=== PATIENT | male | born 1965 | race Caucasian/White ===

== ENCOUNTER 2019-09-08 15:55 | Emergency (ER) | payer OTHER, SELFPAY ==
[2019-09-08 16:09] VITALS: BP 145/80; PULSE 108; RESP 16; TEMP 37.7; O2SAT 95
--- NOTE | 2019-09-08 16:35 | ED.DENTAL ---
HPI - Dental/Oral General Chief complaint: Dental/Oral Stated complaint: tooth abscess Time Seen by Provider: 09/08/19 16:26 Source: patient and RN notes reviewed Mode of arrival: ambulatory Limitations: no limitations History of Present Illness HPI Narrative: Patient presents today complaining of a broken tooth. Patient broke his tooth yesterday while eating nuts. Reports some swelling to the left cheek since last night. He has been unable to find a dentist to see in the last couple days. Currently rates his pain 6/10 and has been using Orajel with some relief. No recent antibiotic use. MD Complaint: tooth pain Related Data Home Medications Medication Instructions Recorded Confirmed azelastine 137 mcg INTRANASAL DAILY 09/08/19 09/08/19 montelukast 10 mg PO DAILY 09/08/19 09/08/19 Allergies Allergy/AdvReac Type Severity Reaction Status Date / Time house dust Allergy Unknown Other Verified 09/08/19 16:00 shellfish derived Allergy Unknown Anaphylactic Verified 09/08/19 16:09 Shock Review of Systems Review of Systems: Narrative: CONSTITUTIONAL: Denies body aches, fever, chills, or sweats. EYES: Denies visual changes, redness, or discharge. ENT: Denies rhinorrhea, congestion, sore throat, or otalgia.+ Dental pain and facial swelling CARDIOVASCULAR: Denies chest pain, palpitations, or edema. RESPIRATORY: Denies cough or dyspnea. GASTROINTESTINAL: Denies abdominal pain, nausea, vomiting, or diarrhea. GENITOURINARY: Denies dysuria or hematuria. SKIN: Denies rash, itching, or wounds. MUSCULOSKELETAL: Denies back pain, joint pain, or myalgia. NEUROLOGIC: Denies headache, numbness, tingling, or weakness. PSYCH: Denies depression or anxiety. [facility] Family History Family History (Updated 10/29/15 @ 23:21 by DOCTOR UNKNOWN) Mother Family history of rheumatoid arthritis Family history of diabetes mellitus in first degree relative Family history of congestive heart failure Sibling Patient's sister is in good health Patient's brother is in good health Other Diabetes mellitus Family history of heart disease in male family member before age 55 Social History Social History Smoking status: Never smoker Alcohol intake: never Comments At time of signature, I have reviewed and agree with nursing past medical, surgical, social and family history unless otherwise noted. Please see nursing chart for further information. There is no relevant family history pertinent to the presenting complaint Exam Narrative: Exam Narrative: GENERAL: Well-appearing, well-nourished, and in no acute distress. HEAD: Normocephalic, atraumatic. EYES: EOMI. No redness or drainage. Conjunctivae normal. ENT: Mucous membranes pink and moist. Anterior portion of tooth #11 is broken off. The tooth is brown in color. Mild swelling and erythema to the gingiva. No obvious periapical abscess. Tender to palpation. Mild facial swelling to the left upper cheek NECK: Normal AROM. Supple. No lymphadenopathy. CHEST: No respiratory distress. EXTREMITIES: Normal range of motion. No edema. SKIN: Warm, dry, no rash. Capillary refill normal. Normal skin turgor. NEURO: No focal deficits. Alert and oriented x3. Gait steady. PSYCH: Normal affect. No signs of depression or anxiety. Course Vital Signs Vital signs: Vital Signs Temperature 99.8 F H 09/08/19 16:09 Pulse Rate 108 H 09/08/19 16:09 Respiratory Rate 16 09/08/19 16:09 Blood Pressure 145/80 H 09/08/19 16:09 Pulse Oximetry 95 09/08/19 16:09 Temperature 99.8 F H 09/08/19 16:09 Pulse Rate 108 H 09/08/19 16:09 Respiratory Rate 16 09/08/19 16:09 Blood Pressure 145/80 H 09/08/19 16:09 Pulse Oximetry 95 09/08/19 16:09 Reviewed. Pt has been instructed to follow up with his PCP regarding his elevated blood pressure today. MDM - Dental/Oral Differential Diagnosis Differential diagnosis: Likely gingival abscess, dental caries, toothache, dental ab
== END 2019-09-08 16:41 | disposition home or self-care (01) ==
PROVIDERS: Emergency Provider Nurse Practitioner
DX: K03.81 Cracked tooth (principal)
CPT/HCPCS: 99211; G0463

== ENCOUNTER 2019-10-19 13:00 | Emergency (ER) | payer OTHER, SELFPAY ==
--- NOTE | 2019-10-19 13:11 | ED.WOUNDLAC ---
HPI - Wound/Laceration General Chief Complaint: Wound/Laceration Stated Complaint: Finger abrasion Time Seen by Provider: 10/19/19 13:14 Source: patient and RN notes reviewed Mode of arrival: ambulatory Limitations: no limitations History of Present Illness HPI narrative: This is a 53 years old male presents to the office for an evaluation of left finger laceration. He accidentally cut the tip of his finger while trimming the bushes at home. TD is up to date per patient's report. He did not want to come in however his made him. Related Data Allergies Allergy/AdvReac Type Severity Reaction Status Date / Time house dust Allergy Unknown Other Verified 09/08/19 16:00 shellfish derived Allergy Unknown Anaphylactic Verified 09/08/19 16:09 Shock Review of Systems Review of Systems: Narrative: CONSTITUTIONAL: Reports feeling hot; since he has been outside cutting trees/bushes. ENT: Denies congestion CARDIOVASCULAR: Denies chest pain RESPIRATORY: Denies dyspnea GASTROINTESTINAL: Denies abdominal pain, nausea, vomiting SKIN: Reports finger laceration with chipped nail MUSCULOSKELETAL: Denies finger pain and able to move his fingers without any numbness or tingling NEUROLOGIC: Denies lightheaded All other systems reviewed are negative, except as documented in HPI. PMFSH Family History Family History Mother Family history of rheumatoid arthritis Family history of diabetes mellitus in first degree relative Family history of congestive heart failure Sibling Patient's sister is in good health Patient's brother is in good health Other Diabetes mellitus Family history of heart disease in male family member before age 55 Social History Social History Smoking status: Never smoker Alcohol intake: never Comments At time of signature, I agree with nursing past medical, surgical, social and family history. There is no relevant family history pertinent to the presenting complaint. Exam Narrative: Exam Narrative: GENERAL: This is a well-nourished, well-developed patient, in no apparent distress. CARDIOVASCULAR: Regular rate and rhythm without murmurs, gallops, or rubs. RESPIRATORY: Clear to auscultation. Breath sounds equal bilaterally. No wheezes, rales, or rhonchi. GASTROINTESTINAL: Abdomen soft, non-tender, nondistended. Bowel sounds are active. No guarding. NEURO: awake, alert, and oriented to person, place and time. There were no obvious focal neurologic abnormalities. Steady gait EXTREMITIES: Normal range of motion of left index finger, medial aspect of nail bed noted chipped nail with skin abrasion; no active bleeding, lac is very superficial; no gapping, wound tension is very low; no stitches needed. Denisse Coma Scale Eye Opening: Spontaneous 4 Yale Coma Scale Motor: Obeys Commands 6 Denisse Coma Scale Verbal: Oriented 5 Course Vital Signs Vital signs: Vital Signs Temperature 99.1 F 10/19/19 13:13 Pulse Rate 120 H 10/19/19 13:13 Respiratory Rate 16 10/19/19 13:13 Blood Pressure 145/103 H 10/19/19 13:13 Pulse Oximetry 97 10/19/19 13:13 Temperature 99.1 F 10/19/19 13:13 Pulse Rate 120 H 10/19/19 13:13 Respiratory Rate 16 10/19/19 13:13 Blood Pressure 145/103 H 10/19/19 13:13 Pulse Oximetry 97 10/19/19 13:13 MDM - Wound/Laceration MDM Narrative Medical decision making narrative: Clean the wound with iodine and then apply topical antibiotic ointment and dressed it with Band-Aid and Coban along with finger splint. Discharge instructions reviewed with patient, as well as provided in writing per nursing staff. The instructions also include specific and strict return/GO TO THE ER as well as f/u information. All questions have been answered, and the patient deny any further questions with discharge and discharge plan. The patient has been informed that
[2019-10-19 13:13] VITALS: BP 145/103; PULSE 120; RESP 16; TEMP 37.3; O2SAT 97
--- NOTE | 2019-10-19 13:38 | PC.NURSE ---
BP rechecked on discharge 136/72
== END 2019-10-19 13:38 | disposition home or self-care (01) ==
PROVIDERS: Emergency Provider Nurse Practitioner; PCP Family Medicine
DX: S60.411A Abrasion of left index finger, initial encounter (principal); W45.8XXA Other foreign body or object entering through skin, initial encounter; M19.90 Unspecified osteoarthritis, unspecified site
CPT/HCPCS: 29130; 99212; G0463

== ENCOUNTER 2020-04-05 12:36 | Outpatient (NON) | payer BC, OTHER, SELFPAY ==
[2020-04-05 22:18] LABS: SARS-CoV-2 RNA PCR Negative
== END 2020-04-05 12:37 ==
PROVIDERS: PCP Family Medicine; Visit Provider Family Medicine
DX: R68.89 Other general symptoms and signs (principal); Z20.822 Contact with and (suspected) exposure to COVID-19
CPT/HCPCS: C9803; U0003

== ENCOUNTER 2020-04-05 17:24 | Outpatient (CLI) | payer BC, OTHER, SELFPAY ==
--- NOTE | ~2020-04-05 | XR_ITS ---
EXAMINATION: XR chest 2V EXAM DATE: 04/05/2020 17:43 INDICATION: Persistent cough, congestion. TECHNIQUE: Frontal and lateral projections of the chest obtained and reviewed. Comparison is made to prior examination from 07/11/2017. FINDINGS: Mild cardiomegaly. There is pulmonary vascular congestion. There is indistinct reticulatio n with a bibasal predominance which may indicate pulmonary edema. Chronic left pleural blunting. Cons ider CHF exacerbation. No confluent consolidation or pneumothorax. IMPRESSION: Findings consistent with mild CHF exacerbation. Reviewed, dictated and finalized at location A. [employer]
== END 2020-04-05 17:25 | disposition home or self-care (01) ==
PROVIDERS: PCP Family Medicine; Visit Provider Family Medicine
DX: R05 Cough (principal)
CPT/HCPCS: 71046; C9803; U0003

== ENCOUNTER 2020-06-04 14:39 | Outpatient (CLI) | payer BC, OTHER, SELFPAY ==
--- NOTE | 2020-06-04 14:46 | ECHO_ITS ---
Patient Info Name: Frank Crawford Age: 54 years : 1965 Gender: Male Ht: 73 in Wt: 483 lbs BSA: 3.49 m2 HR: 104 bpm BP: 141 / 85 mmHg Technical Quality: Poor Exam Date: 06/04/2020 2:53 PM Exam Location: [facility] Patient Status: Outpatient Admit Date: 06/04/2020 Staff Ordering Physician: Pete Turner DO Tutoring Manager: Angelina Yuan RDCS Attending Provider: Pete Turner DO Referring Physician: Johnny DAVIS; Exam Type: CA echo doppler color flow Study Info Indications - MADDIE GUERRA Complete two-dimensional, color flow and Doppler transthoracic echocardiogram is performed. Reason for Poor Study: patient body habitus Summary 1. Complete two-dimensional, color flow and Doppler transthoracic echocardiogram is performed. 2. Technically suboptimal study due to poor sonographic images. 3. Left ventricular chamber dimension is normal. 4. Left ventricular systolic function is normal, estimated at 60-65%. 5. There is mildly increased left ventricular wall thickness. 6. The left ventricular diastolic function is grade I diastolic dysfunction. 7. E/e' 8 is minimally elevated. Left Ventricle Technically suboptimal study due to poor sonographic images. E/e' 8 is minimally elevated. Left ventricular chamber dimension is normal. Left ventricular systolic function is normal, estimated at 60-65%. There is mildly increased left ventricular wall thickness. The left ventricular diastolic function is grade I diastolic dysfunction. Right Ventricle Right ventricular chamber dimension is not well visualized. Left Atria Left atrial chamber dimension is normal. Right Atria Right atrial chamber dimension is not well visualized. Aortic Valve The aortic valve is probable trileaflet. There is no aortic valve stenosis. There is no aortic valve regurgitation. Pulmonic Valve There is no pulmonic regurgitation. Mitral Valve There is no mitral valve stenosis. There is no mitral valve regurgitation. Tricuspid Valve There is no tricuspid valve regurgitation. Pericardium/Pleural There is no pericardial effusion. Inferior Vena Cava Inferior vena cava is not well visualized. Aorta The aortic root size at the sinus of Valsalva is not well visualized. Left Ventricular Outflow Tract Name Value Normal LVOT 2D LVOT Diameter 2.2 cm LVOT Doppler LVOT Peak Gradient 4 mmHg LVOT Mean Gradient 3 mmHg LVOT VTI 21 cm LVOT VTI/AV VTI Ratio 1.0 LVOT Stroke Volume 81 ml LVOT CO 17.6 l/min LVOT CI 5.1 l/min/m2 Pulmonic Valve Name Value Normal PV Doppler PV Peak Gradient 4 mmHg Mitral Valve
== END 2020-06-04 14:40 | disposition home or self-care (01) ==
PROVIDERS: PCP Family Medicine; Visit Provider Internal Medicine Cardiovascular Disease
DX: R60.9 Edema, unspecified (principal)
CPT/HCPCS: 93306

== ENCOUNTER 2020-07-09 09:30 | Outpatient (CLI) | payer BC, MEDICAID, SELFPAY ==
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
[2020-07-26 17:30] VITALS: BMI 51.2
== END 2020-07-09 09:31 | disposition home or self-care (01) ==
LOC: ANHCSM 09:30
PROVIDERS: PCP Family Medicine; Visit Provider Internal Medicine Cardiovascular Disease
DX: G47.10 Hypersomnia, unspecified (principal); G47.33 Obstructive sleep apnea (adult) (pediatric)
CPT/HCPCS: 95806

== ENCOUNTER 2020-07-27 18:18 | Emergency (ER) | payer BC, MEDICAID, SELFPAY ==
[2020-07-27 18:33] VITALS: BP 143/84; PULSE 120; RESP 30; TEMP 38.1; O2SAT 97
--- NOTE | 2020-07-27 19:07 | ED.URI ---
HPI - URI/Sore Throat General Chief Complaint: Upper Respiratory Infection Stated Complaint: Hard time breathing,congestion Time Seen by Provider: 07/27/20 18:50 Source: patient, RN notes reviewed and old records reviewed Mode of arrival: ambulatory History of Present Illness HPI Narrative: 54 year old morbidly obese male presents to express care with complaints of while driving home today he felt sinus pressure building up and increase in his sinus drainage. Patient states that he is having increase in his dyspnea today because of the spring pollen. Patient states that he keeps getting sinus infections and he has been on antibiotic of Augmentin in the past 60 days. 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 Patient states that is ill at present. MD elicited complaint: cough, rhinorrhea and nasal congestion Pertinent past history: pneumonia, sinusitis and seasonal allergies Onset (ago): day(s) (1) Consistency: progressively worsening Description of mucous: clear Able to tolerate fluids by mouth: Yes Exacerbating factors: exertion Relieving factors: nothing Context: sick contacts Associated symptoms: fever, rhinorrhea, nasal congestion, cough and shortness of breath Treatments prior to arrival: other (claritin) Related Data Home Medications Medication Instructions Recorded Confirmed azelastine 137 mcg (0.1 %) nasal 2 spray INTRANASAL Q12H ml 04/09/20 07/20/20 spray aerosol cyclobenzaprine 5 mg tablet 5 mg PO TID PRN 04/09/20 07/20/20 desloratadine 5 mg tablet 5 mg PO DAILY 04/09/20 07/20/20 diphenhydramine HCl 25 mg capsule 25 mg PO TID PRN 04/09/20 07/20/20 docusate sodium 100 mg capsule 100 mg PO DAILY 04/09/20 07/20/20 flu vacc [id number] 6mos up(PF) 0.5 ml IM ONCE 04/09/20 07/20/20 sildenafil 50 mg tablet 50 mg PO DAILY PRN 04/09/20 07/20/20 tamsulosin 0.4 mg capsule 0.4 mg PO DAILY 04/09/20 07/20/20 Allergies Allergy/AdvReac Type Severity Reaction Status Date / Time house dust Allergy Unknown Other Verified 07/27/20 18:21 shellfish derived Allergy Unknown Anaphylactic Verified 07/27/20 18:21 Shock Review of Systems Review of Systems: Narrative: CONSTITUTIONAL: Denies known fever, chills, or sweats. EYES: Denies visual changes, redness, or discharge. ENT: Positive rhinorrhea, congestion, sore throat, or otalgia. CARDIOVASCULAR: Denies chest pain, palpitations, or edema. RESPIRATORY: Positive for cough or dyspnea.on exertion GASTROINTESTINAL: Denies abdominal pain, nausea, vomiting, or diarrhea. GENITOURINARY: Denies dysuria or hematuria. SKIN: Denies rash or itching. MUSCULOSKELETAL: Denies back pain, joint pain, or myalgia. NEUROLOGIC: Denies headache, numbness, or weakness. PSYCHIATRIC: Denies anxiety or depression. anxious All systems reviewed & are unremarkable except as noted in HPI and below PMFSH Past Medical History Medical History Arthritis Kidney stones Obesity Seasonal allergies Surgical History Surgical History History of nasal surgery Family History Family History Mother Family history of rheumatoid arthritis Family history of diabetes mellitus in first degree relative Family history of congestive heart failure Sibling Patient's sister is in good health Patient's brother is in good health Other Diabetes mellitus Family history of heart disease in male family member before age 55 Social History Social History (Updated 08/01/20 @ 20:02 by Vika Lamb NP) Smoking status: Never smoker Alcohol intake: never Substance use: never Living arrangements: with family Gender identity
== END 2020-07-27 19:18 | disposition home or self-care (01) ==
PROVIDERS: Emergency Provider Registered Nurse
DX: J06.9 Acute upper respiratory infection, unspecified (principal); M19.90 Unspecified osteoarthritis, unspecified site
CPT/HCPCS: 99213; G0463

== ENCOUNTER → 2020-08-04 01:57 | Outpatient (CLI) | payer BC, MEDICAID, SELFPAY ==
[2020-08-04 20:20] LABS: SARS-CoV-2 RNA PCR Negative
== END ==
PROVIDERS: Visit Provider Internal Medicine Critical Care Medicine
DX: R68.89 Other general symptoms and signs (principal); Z20.822 Contact with and (suspected) exposure to COVID-19
CPT/HCPCS: C9803; U0003; U0005

== ENCOUNTER 2020-08-05 19:31 | Emergency (ER) | payer BC, MEDICAID, SELFPAY ==
--- NOTE | ~2020-08-05 | XR_ITS ---
EXAMINATION: XR chest 2V DATE: 08/05/2020 19:47 INDICATION: Cough and shortness of breath. TECHNIQUE: Frontal and lateral views of the chest were obtained on 3 radiographs. COMPARISON: Chest 2 views 04/05/2020, chest CT 11/02/2018 FINDINGS: Sensitivity is decreased by obesity. There is mild atelectasis in left lower lung zone. No pleural effusion or pneumothorax. The heart size is normal. IMPRESSION: 1. Mild atelectasis in left lower lung zone. Reviewed, dictated and finalized at location A.
--- NOTE | 2020-08-05 19:37 | ED.URI ---
HPI - URI/Sore Throat General Chief Complaint: Upper Respiratory Infection Stated Complaint: Cough,Congestion Time Seen by Provider: 08/05/20 19:37 Source: patient and RN notes reviewed Mode of arrival: ambulatory Limitations: no limitations History of Present Illness HPI Narrative: 54-year-old male presents to the [facility] with complaints of cough and shortness of breath. 8 or 9 days of productive cough. Nasal congestion. Tested for Covid yesterday at the walk-in clinic and that was negative per chart. Was on azithromycin last week and states she started feeling better but is now feeling worse. Denies fevers. Denies chest pain. Related Data Home Medications Medication Instructions Recorded Confirmed albuterol sulfate INHALATION 08/05/20 montelukast 1 mg PO DAILY 08/05/20 08/05/20 Allergies Allergy/AdvReac Type Severity Reaction Status Date / Time house dust Allergy Unknown Other Verified 08/05/20 19:52 shellfish derived Allergy Unknown Anaphylactic Verified 08/05/20 19:52 Shock Review of Systems Review of Systems: Narrative: CONSTITUTIONAL: Denies fever, chills, or sweats. CARDIOVASCULAR: Denies chest pain, palpitations, or edema. RESPIRATORY: Reports cough or dyspnea. GASTROINTESTINAL: Denies abdominal pain, nausea, vomiting, or diarrhea. SKIN: Denies rash or itching. MUSCULOSKELETAL: Denies back pain, joint pain, or myalgia. NEUROLOGIC: Denies headache, numbness, or weakness. PSYCHIATRIC: Denies anxiety or depression. All other systems reviewed are negative, except as documented in HPI. [facility] Past Medical History Medical History Arthritis Kidney stones Obesity Seasonal allergies Surgical History Surgical History History of nasal surgery Family History Family History Mother Family history of rheumatoid arthritis Family history of diabetes mellitus in first degree relative Family history of congestive heart failure Sibling Patient's sister is in good health Patient's brother is in good health Other Diabetes mellitus Family history of heart disease in male family member before age 55 Social History Social History Smoking status: Never smoker Alcohol intake: never Substance use: never Gender identity (if verbalized by the patient): Male Comments At the time of my signature, I reviewed and agree with the nursing past medical, surgical, social, and family history. There is no relevant family history pertinent to the patient complaint. Exam Narrative: Exam Narrative: GENERAL: This is a well-nourished, well-developed patient, in mild apparent distress. Ill in appearance. Morbidly obese. Alert and oriented x3. HEAD: normocephalic, atraumatic. EYES: PERRL. Sclera clear/white. Vision is grossly intact. EARS: External ears normal, NOSE: External nose normal with nasal discharge, nares without redness, no rhinorrhea. THROAT: Mucous membranes moist, posterior pharynx clear. NECK: Neck supple, non-tender without lymphadenopathy, masses or thyromegaly. CARDIOVASCULAR: Tachycardic rate and normal rhythm without murmurs, gallops, or rubs. RESPIRATORY: Left lower lobe diminished to auscultation, no wheezing or rhonchi noted GASTROINTESTINAL: Abdomen soft, non-tender, nondistended. SKIN: warm, Dry, intact with no suspicious lesions or rash, good texture and turgor. NEURO: awake, alert, and oriented to person, place and time. There were no obvious focal neurologic abnormalities. EXTREMITIES: No joint tenderness, effusion, or edema noted. BACK: Nontender without deformity. Course Vital Signs Vital signs: Vital Signs Temperature 98.8 F 08/05/20 19:52 Pulse Rate 117 H 08/05/20 19:52 Respiratory Rate 20 08/05/20 19:52 Blood Pressure 152/97 H 08/05/20 19:52 Pulse Oximetry 96
[2020-08-05 19:52] VITALS: BP 152/97; PULSE 117; RESP 20; TEMP 37.1; O2SAT 96
== END 2020-08-05 20:10 | disposition home or self-care (01) ==
PROVIDERS: Emergency Provider Nurse Practitioner; PCP Family Medicine
DX: J40 Bronchitis, not specified as acute or chronic (principal); J98.11 Atelectasis; M19.90 Unspecified osteoarthritis, unspecified site
CPT/HCPCS: 71046; 99213; G0463

== ENCOUNTER 2020-08-08 19:28 | Emergency (ER) | payer BC, MEDICAID, SELFPAY ==
--- NOTE | ~2020-08-08 | CT_ITS ---
EXAMINATION:CT chest high resolution w con DATE: 08/08/2020 21:29 INDICATION: Cough. Shortness of breath. TECHNIQUE: Computed tomography (CT) of the chest was performed with 75 mL Omnipaque 350 intravenous c ontrast. Automated exposure control and iterative reconstruction technique were employed. The dose-le ngth product (DLP) was 1026.99 mGy-cm. COMPARISON: Chest CT 11/02/2018 FINDINGS: There is chronic mild peripheral rounded atelectasis in left lower lobe and lingula. There is mild atelectasis in right lung. No bronchiectasis or honeycombing. No pleural effusion. The heart size is normal. No pericardial effusion. There is diffuse hepatic steatosis. There is moderate thorac ic spondylosis. IMPRESSION: 1. Mild atelectasis in the lungs. 2. Diffuse hepatic steatosis. Reviewed, dictated and finalized at location A.
--- NOTE | ~2020-08-08 | XR_ITS ---
EXAMINATION: XR chest 1V portable DATE: 08/08/2020 19:52 INDICATION: Shortness of breath. TECHNIQUE: A single frontal view of the chest was obtained on 2 radiographs. COMPARISON: Chest 2 views 08/05/2020, chest CT 11/02/2018 FINDINGS: Sensitivity is decreased by obesity. There are mild airspace opacities in left lower lung z one. No pleural effusion or pneumothorax. The heart size is normal. IMPRESSION: 1. Mild airspace opacities in left lower lung zone, consistent with atelectasis versus pneumonia. Reviewed, dictated and finalized at location A.
[2020-08-08 19:32] VITALS: BP 151/90; PULSE 125; RESP 24; TEMP 36.3; O2SAT 98
--- NOTE | 2020-08-08 19:41 | ECG_ITS ---
Measurements Intervals [place] Rate: 122 P: ID: 0 QRS: -35 QRSD: 78 T: 81 QT: 302 QTc: 432 Interpretive Statements SINUS TACHYCARDIA LEFT AXIS DEVIATION INCOMPLETE RIGHT BUNDLE BRANCH BLOCK DELAYED PRECORDIAL R/S TRANSITION VOLTAGE CRITERIA FOR LVH BORDERLINE ST-T WAVE ABNORMALITY- HIGH LATERAL LEADS ABNORMAL ECG Electronically Signed On 08-09-2020 7:01:23 CDT by Pete Turner D.O.
[2020-08-08 19:53] LABS: Basophils Percent Auto 0.2 % (0.2-1.2); Eosinophils Absolute Auto 0.1 K/mm3 (0-0.3); Eosinophils Percent Auto 0.5 % (0-4.4); Hematocrit 46.9 % (42.0-52.0); Hemoglobin 14.8 g/dL (14.0-18.0); Immature Granulocyte Absolute 0.11 K/mm3 (0.00-0.031); Immature Granulocyte Percent A 0.8 % (0-0.5); Lymphocytes Absolute Auto 1.63 K/mm3 (0.9-3.2); Lymphocytes Percent Auto 11.5 % (18.3-44.2); Mean Corpuscular HGB Conc 31.6 g/dl (32-36); Mean Corpuscular Hemoglobin 29.2 pg (26-34); Mean Corpuscular Volume 92.5 fl (80-100); Mean Platelet Volume 10.4 fl (7.4-10.4); Monocytes Absolute Auto 0.9 K/mm3 (0.1-0.6); Neutrophils Absolute Auto 11.5 K/mm3 (1.3-6.7); Platelet Count Result 285 k/mm3 (150-375); Red Blood Count 5.07 M/mm3 (4.6-6.20); Red Cell Distribution Width 14.6 % (11.5-14.5); White Blood Count 14.2 K/mm3 (4.5-10.0)
[2020-08-08 20:04] LABS: Anion Gap 9 mmol/L (8-16); Blood Urea Nitrogen 14 mg/dL (9-20); Calcium 9.4 mg/dL (8.4-10.2); Carbon Dioxide 28 mmol/L (22-30); Chloride 102 mmol/L (98-107); Estimated Glomerular Filt Rate > 60; Glucose 139 mg/dL (75-110); Potassium 4.4 mmol/L (3.4-5.0); Sodium 139 mmol/L (137-145)
--- NOTE | 2020-08-08 20:04 | ED.SOB ---
HPI - SOB/Dyspnea General Chief Complaint: Shortness of Breath/Dyspnea Stated Complaint: short of breath Time Seen by Provider: 08/08/20 19:43 Source: patient Mode of arrival: ambulatory Limitations: no limitations History of Present Illness HPI Narrative: This is a 54 year old morbidly obese male who presents for evaluation of worsening shortness of breath. He has been dealing with sinus drainage, sinus pressure, and cough for at least 2 weeks. He was evaluated at [facility] on 08/05/20 for shortness of breath, and he was started on Levaquin, prednisone, and albuterol after a diagnosis of Bronchitis. He states he was initially feeling better but today he was having a coughing attack. He feels better now and only has mild sob. He states he has had to sleep sitting up over the past 3-4 days. He has chronic leg edema but denies worsening swelling. 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 He states he was told his cardiac evaluation was fine, but now he is awaiting a sleep study. He reports intermittent burning chest pain with he uses his albuterol. Covid test was negative on 08/04/20. Related Data Home Medications Medication Instructions Recorded Confirmed albuterol sulfate INHALATION 08/05/20 montelukast 1 mg PO DAILY 08/05/20 08/05/20 Allergies Allergy/AdvReac Type Severity Reaction Status Date / Time house dust Allergy Unknown Other Verified 08/08/20 19:49 shellfish derived Allergy Unknown Anaphylactic Verified 08/08/20 19:49 Shock Review of Systems Review of Systems: All systems reviewed & are unremarkable except as noted in HPI and below Constitutional: Constitutional: Denies chills and Denies fever(s) ENT: Reports nasal congestion and Denies sore throat Cardiovascular: Cardiovascular: Reports chest pain, Denies rapid heart rate and Denies radiating jaw, neck or arm pain Respiratory: Respiratory: Reports cough and Reports dyspnea Gastrointestinal: Gastrointestinal: Denies abdominal pain, Reports diarrhea, Denies nausea and Denies vomiting PMF Past Medical History Medical History Arthritis Kidney stones Obesity Seasonal allergies Surgical History Surgical History History of nasal surgery Family History Family History Mother Family history of rheumatoid arthritis Family history of diabetes mellitus in first degree relative Family history of congestive heart failure Sibling Patient's sister is in good health Patient's brother is in good health Other Diabetes mellitus Family history of heart disease in male family member before age 55 Social History Social History Smoking status: Never smoker Alcohol intake: never Substance use: never Gender identity (if verbalized by the patient): Male Exam Const: General: alert Nutritional Appearance: obese Orientation/consciousness: patient oriented x3 Eyes: EOM: EOMs intact bilaterally Chest: Chest palpation & inspection: normal inspection of the chest Resp: Effort & Inspection: normal respiratory effort and no retractions Auscultation: clear to auscultation bilaterally and diminished lung sounds Cardio: Rate: regular rate Rhythm: regular rhythm Heart sounds: no murmurs GI: GI Palp: Yes Soft to palpation, No Tenderness to palpation present (GI) and No Guarding due to palpation present (GI) Auscultation: normal bowel sounds Neuro: General: patient oriented x3 and moves all extremities Psych: Mental Status: mental status grossly normal Affect: normal affect Course Reevaluation(s) Reevaluation #1: I Discussed with patient that CT does not show pneumonia or edema. His shortness of breath likely due to size. He will continue antibioti
[2020-08-08 20:27] LABS: INR 0.9; Prothrombin Time 13.1 Seconds (11.1-14.7)
[2020-08-08 20:28] LABS: Partial Thromboplastin Time 26.1 SECONDS (22.3-36.8)
[2020-08-08 20:43] LABS: NT Pro B Type Natriuretic Pept 39 pg/mL (5-100); Troponin I < 0.012 ng/mL (0.000-0.034)
[2020-08-08 20:43] LABS: Lactic Acid Reflex 1.9 mmol/L (0.7-2.1)
[2020-08-08 20:46] LABS: D Dimer 0.43 ug/mL (<0.48)
[2020-08-08 20:47] LABS: Base Excess ABG 1.3 mEq/l (+/-2.0); Device ROOM AIR; Fractional Inspired Oxygen 21 %; HCO3 ABG 25.7 mEq/l (22.0-26.0); Methemoglobin ABG 0.1 %THb (0-1.5); Modified Allen's Test Pass; Oxygen Content ABG 19.6 %vol (16.0-22.0); Oxygen Saturation ABG 94.4 % (95.0-100.0); Oxyhemoglobin 93.5 % THb (90.0-100.0); PO2 ABG 69.8 mmHg (80.0-100.0); PO2 FiO2 Ratio Arterial Blood 3.32 %; Reduced Hemoglobin 5.4 %THb (0-5.0); Site Drawn RIGHT RADIAL; Total Hemoglobin 14.9 g/dL (12.0-18.0); pH ABG 7.426 (7.350-7.450)
[2020-08-08] MEDS: diphenhydrAMINE HCl INJ 50 MG/ML VIAL 25 MG IV PUSH (21:10)
[2020-08-08] MEDS: ONDANSETRON INJ 4 MG/2 ML VIAL IV PUSH (21:12)
--- NOTE | 2020-08-08 21:14 | PC.NURSE ---
Pt to Ct via stretcher at this time.
[2020-08-08 21:35] VITALS: BP 159/90; PULSE 120; RESP 19; O2SAT 97
[2020-08-08] MEDS: SODIUM CHLORIDE 0.9% IV 1,000 ML 999 ML IV CONT (21:54)
[2020-08-08 22:36] VITALS: BP 160/78; PULSE 110; RESP 23; O2SAT 95
[2020-08-08 23:25] VITALS: BP 150/87; PULSE 108; RESP 26; O2SAT 95
== END 2020-08-08 23:25 | disposition home or self-care (01) ==
PROVIDERS: Emergency Medicine; Emergency Provider General Practice; PCP Family Medicine
DX: J06.9 Acute upper respiratory infection, unspecified (principal); R00.0 Tachycardia, unspecified; E66.01 Morbid (severe) obesity due to excess calories; M19.90 Unspecified osteoarthritis, unspecified site; Z87.442 Personal history of urinary calculi; K76.0 Fatty (change of) liver, not elsewhere classified; I45.10 Unspecified right bundle-branch block; R94.31 Abnormal electrocardiogram [ECG] [EKG]; R91.8 Other nonspecific abnormal finding of lung field
CPT/HCPCS: 36415; 36600; 71045; 71260; 80048; 82375; 82805; 83050; 83605; 83880; 84484; 85025; 85380; 85610; 85730; 93005; 96361; 96374; 96375; 99284; J1200; J2405; J7030; Q9967

== ENCOUNTER 2020-10-25 08:25 | Emergency (ER) | payer BC, MEDICAID, SELFPAY ==
--- NOTE | ~2020-10-25 | US_ITS ---
EXAMINATION: US scrotum doppler EXAM DATE: 10/25/2020 09:41 INDICATION: Testicular pain. Injury, fell on scrotum 2 days ago. TECHNIQUE: Multiple grayscale and Doppler images of the testicles and scrotum were obtained bilateral ly. There is no prior study for comparison. FINDINGS: There is bilateral testicular microlithiasis. There is diffuse scrotal, skin swelling/edema . Right testicle measures 3.6 x 3.2 x 3.2 cm and is morphologically normal, no evidence of rupture. Lo w resistance Doppler flow confirmed. The epididymis is unremarkable. There is no hydrocele or varico sally. Left testicle measures 4.5 x 3.9 x 2.5 cm and is morphologically normal, no evidence of rupture. Low resistance Doppler flow confirmed. The epididymis is unremarkable. There is no hydrocele or varicoc jonathon. IMPRESSION: 1. No testicular rupture. 2. Diffuse scrotal edema. 3. Testicular microlithiasis. Reviewed, dictated and finalized at location B.
[2020-10-25 08:52] VITALS: BP 152/88; PULSE 112; RESP 14; TEMP 36.9; O2SAT 95
--- NOTE | 2020-10-25 09:12 | ED.GENADULT ---
HPI - General Adult General Chief complaint: Urogenital-Male Stated complaint: FELL, SCROTAL PAIN Time Seen by Provider: 10/25/20 08:40 Source: RN notes reviewed History of Present Illness HPI narrative: Patient presents to emergency department from home for scrotal pain and swelling. Patient states he fell getting out of his car yesterday when he slipped on wet grass he states that when he landed he came down on his testicles and has been having pain and swelling in his testicles since that time he denies striking his head or loss of consciousness he denies any other injuries he states that his testicles are tender to palpation but denies any known bruising in the region he denies any difficulty urinating he denies any fevers or chills chest pain shortness of breath abdominal pain nausea vomiting or any other symptoms Related Data Home Medications Medication Instructions Recorded Confirmed albuterol sulfate INHALATION 08/05/20 montelukast 1 mg PO DAILY 08/05/20 08/05/20 Allergies Allergy/AdvReac Type Severity Reaction Status Date / Time house dust Allergy Unknown Other Verified 10/25/20 09:16 shellfish derived Allergy Unknown Anaphylactic Verified 10/25/20 09:16 Shock Review of Systems Review of Systems: Narrative: Gen.: Denies fevers or chills ENT: Denies congestion Respiratory: Denies shortness of breath or cough CV: Denies chest pain or palpitations GI: Denies abdominal pain nausea, emesis or diarrhea see HPI Musculoskeletal: Denies back pain or muscle pain Neuro: Denies numbness, tingling, weakness or focal weakness Skin: Denies rash Except as documented, all other systems reviewed and negative [facility] Past Medical History Medical History Arthritis Kidney stones Obesity Seasonal allergies Surgical History Surgical History History of nasal surgery Family History Family History Mother Family history of rheumatoid arthritis Family history of diabetes mellitus in first degree relative Family history of congestive heart failure Sibling Patient's sister is in good health Patient's brother is in good health Other Diabetes mellitus Family history of heart disease in male family member before age 55 Social History Social History (Reviewed 07/26/21 @ 09:13 by PHANI Thomas Smoking status: Never smoker Alcohol intake: never Substance use: never Gender identity (if verbalized by the patient): Male Exam Narrative: Exam Narrative: APPEARANCE: No acute distress, nontoxic, resting in bed EYES: EOMI HEENT: Normocephalic, atraumatic, OMM RESPIRATORY: No respiratory distress Clear to auscultation bilaterally with no rhonchi wheezing or rales. CARDIOVASCULAR: Regular rate and rhythm without murmurs rubs or gallops. ABDOMINAL: Soft, nontender, nondistended, no rebound or guarding : No skin lesions seen no phimosis or paraphimosis, diffuse swelling of the scrotum with no ecchymosis seen tender to palpation over the bilateral testicles no erythema of the scrotum MUSCULOSKELETAl: Moves all extremities. No clubbing, cyanosis or edema. NEURO: Awake and alert. Following commands, speech normal, no focal deficits SKIN:: Warm, dry. No rashes lesions or abrasions PSYCHIATRIC: Normal affect/mood, Course Course Emergency Course: Discussed with Dr. Mendez presentation work-up recommends patient keep scrotum elevated follow-up as an outpatient Discussed with patient results of workup and diagnosis. Discussed need for follow-up with primary care, proper use of medication, and reasons to return to the emergency department. Patient understands and agrees to current treatment plan Vital Signs Vital signs: Vital Signs Temperature 98.4 F 10/25/20 08:52 Pulse Rate 112 H 10/25/20 08:52 Respiratory Rate 14 10/25/20 08:52 Blood Pressure 152
--- NOTE | 2020-10-25 09:16 | PC.NURSE ---
Pt to U/S via stretcher.
[2020-10-25 10:29] VITALS: BP 132/89; PULSE 105; RESP 20; O2SAT 94
[2020-10-25 10:58] LABS: Add Urine Microscopic? YES; Appearance Urine Clear (Clear); Bilirubin Urine Negative (Negative); Blood Urine Negative (Negative); Color Urine Yellow (Yellow); Glucose Urine UA Negative (Negative); Ketones Urine Negative (Negative); Leukocyte Esterase Ur Negative LEU/UL (Negative); Mucus Urine Rare /lpf; Nitrate Urine Negative (Negative); Protein Urine 1+ mg/dL (Negative); RBC Urine 0-2 /hpf (0-2); Specific Grav Ur 1.019 (1.001-1.035); Squamous Epithelial Cell Urine Rare /hpf (Few); Urobilinogen Urine Negative mg/dL (<2.0); WBC Urine 0-3 /hpf
[2020-10-25] MEDS: IBUPROFEN 600 MG TABLET PO (11:10)
== END 2020-10-25 11:20 | disposition home or self-care (01) ==
PROVIDERS: Emergency Provider Emergency Medicine; PCP Family Medicine
DX: S30.22XA Contusion of scrotum and testes, initial encounter (principal); M19.90 Unspecified osteoarthritis, unspecified site; Z87.442 Personal history of urinary calculi; E66.9 Obesity, unspecified; Z68.43 Body mass index [BMI] 50.0-59.9, adult; W17.89XA Other fall from one level to another, initial encounter
CPT/HCPCS: 76870; 81001; 93976; 99284; A9270

== ENCOUNTER 2021-02-01 16:02 | Emergency (ER) | payer OTHER, MEDICAID, SELFPAY ==
[2021-02-01 16:19] VITALS: BP 145/88; PULSE 120; RESP 18; TEMP 37.2; O2SAT 96
--- NOTE | 2021-02-01 16:36 | ED.URI ---
HPI - URI/Sore Throat General Chief Complaint: Upper Respiratory Infection Stated Complaint: sinus infection Source: patient and RN notes reviewed Limitations: no limitations History of Present Illness HPI Narrative: The vaccinated obese patient, a non-smoker/nondrinker, presents with congestion and sinus headache. Patient states he has a 1 to 2-day worsening of 1 to 2-week history of nasal congestion, frontal sinus headache, sneezing, and eye discharge. No fever measured, sore throat, earache; no loss of taste/smell, CP, calf pain/edema, S OB. Symptoms are mild, unrelieved with the OTC preparations like Claritin. He had a prior chest CT this year which is noncontributory except for bibasilar atelectasis Related Data Home Medications Medication Instructions Recorded Confirmed loratadine [Claritin] 10 mg PO DAILY 02/01/21 02/01/21 Allergies Allergy/AdvReac Type Severity Reaction Status Date / Time shellfish derived Allergy Severe Anaphylactic Verified 02/01/21 16:29 Shock Review of Systems Review of Systems: The patient has been informed that they may have pre-hypertension or Hypertension based on a BP reading in the department. I recommend that the patient call the primary care provider listed on their discharge instructions or a physician of their choice this week to arrange follow up for further evaluation of possible pre-hypertension or Hypertension General/Constitutional: No weight loss,fever Eyes: N0: Redness,discharge Ears/Nose/Throat: No: Epistaxis,ear discharge Respiratory: Denies: Hemoptysis Gastrointestinal: No Vomiting, Bleeding-rectal Skin: No Lumps, eruption Neurologic: No Focal Weakness,Sz Hematologic: Denies: Petechiae/Purpura Psychiatric: No: Suicida ideationl All Other Systems: Reviewed and Negative [facility] Past Medical History Medical History Arthritis Kidney stones Obesity Seasonal allergies Surgical History Surgical History History of nasal surgery Family History Family History Mother Family history of rheumatoid arthritis Family history of diabetes mellitus in first degree relative Family history of congestive heart failure Sibling Patient's sister is in good health Patient's brother is in good health Other Diabetes mellitus Family history of heart disease in male family member before age 55 Social History Social History Smoking status: Never smoker Alcohol intake: never Substance use: never Gender identity (if verbalized by the patient): Male Comments At time of signature, agree with nursing past medical, surgical, social and family history. There is no relevant family history pertinent to the presenting complaint Exam Narrative: General Appearance: Morbidly obese/well nourished EYE: PERRLA, Conjunctiva sl injected Ears: Auditory canal normal, TM normal Nose: Rhinorrhea, Mucousal erythema Mouth/Throat: MM moist, Uvula midline, Pharyngeal erythema Neck: Supple, No adenopathy Respiratory: No respiratory distress, Breath sounds equal, CTA decreased at bases Cardiovascular: RRR, No JVD Musculoskeletal: Non tender, Normal strength Skin: Warm, Dry Neurological: A&O x3, CN II-XII intact Psychiatric: Normal mood, Normal affect Course Vital Signs Vital signs: Vital Signs Temperature 99.0 F 02/01/21 16:19 Pulse Rate 120 H 02/01/21 16:19 Respiratory Rate 18 02/01/21 16:19 Blood Pressure 145/88 H 02/01/21 16:19 Pulse Oximetry 96 02/01/21 16:19 Temperature 99.0 F 02/01/21 16:19 Pulse Rate 120 H 02/01/21 16:19 Respiratory Rate 18 02/01/21 16:19 Blood Pressure 145/88 H 02/01/21 16:19 Pulse Oximetry 96 02/01/21 16:19 Discharge Plan Discharge Clinical Impression: Sinus headache Patie
== END 2021-02-01 16:46 | disposition home or self-care (01) ==
PROVIDERS: Emergency Provider Emergency Medicine
DX: R51.9 Headache, unspecified (principal); M19.90 Unspecified osteoarthritis, unspecified site; E66.9 Obesity, unspecified; Z68.42 Body mass index [BMI] 45.0-49.9, adult
CPT/HCPCS: 99213; G0463

== ENCOUNTER 2021-04-15 14:11 | Emergency (ER) | payer MEDICAID, SELFPAY ==
[2021-04-15 14:21] VITALS: BP 150/84; PULSE 112; RESP 20; TEMP 36.9; O2SAT 95
--- NOTE | 2021-04-15 15:00 | ED.URI ---
HPI - URI/Sore Throat General Chief Complaint: Upper Respiratory Infection Stated Complaint: Sinus Infection Time Seen by Provider: 04/15/21 15:20 Source: patient and RN notes reviewed Mode of arrival: ambulatory Limitations: no limitations History of Present Illness HPI Narrative: 55-year-old male presents with concern for 1 week history of nasal congestion, rhinorrhea, cough, sore throat. He reports he has been taking allergy medicine with no relief. Reports a history of allergies. He denies shortness of breath or sick contacts. Denies fever, body aches, chills, sweats. MD elicited complaint: cough and sore throat Related Data Home Medications Medication Instructions Recorded Confirmed loratadine [Claritin] 10 mg PO DAILY 02/01/21 04/15/21 Allergies Allergy/AdvReac Type Severity Reaction Status Date / Time shellfish derived Allergy Severe Anaphylactic Verified 04/15/21 15:01 Shock Review of Systems Review of Systems: CONSTITUTIONAL: Denies malaise, chills, sweats, or fever. EYES: Denies visual changes, redness, or discharge. ENT: Reports rhinorrhea, congestion, and sore throat. Reports sinus pain, otalgia CARDIOVASCULAR: Denies chest pain, palpitations, or edema. RESPIRATORY: Reports cough. Denies dyspnea. GASTROINTESTINAL: Denies abdominal pain, nausea, vomiting, diarrhea SKIN: Denies rash or itching. MUSCULOSKELETAL: Denies myalgia. NEUROLOGIC: Denies headache. All systems reviewed & are unremarkable except as noted in HPI and below PMFSH Past Medical History Medical History Arthritis Kidney stones Obesity Seasonal allergies Surgical History Surgical History History of nasal surgery Family History Family History Mother Family history of rheumatoid arthritis Family history of diabetes mellitus in first degree relative Family history of congestive heart failure Sibling Patient's sister is in good health Patient's brother is in good health Other Diabetes mellitus Family history of heart disease in male family member before age 55 Social History Social History Smoking status: Never smoker Alcohol intake: never Substance use: never Gender identity (if verbalized by the patient): Male Comments At time of signature, agree with nursing past medical, surgical, social and family history. There is no relevant family history pertinent to the presenting complaint Exam Narrative: GENERAL: Well-appearing, well-nourished, and in no acute distress. HEAD: Normocephalic EYES: PERRLA, right conjunctivae clear. Left conjunctive a injected. Bilateral sclera injected. Skin tag noted below the left eyelid ENT: Nares clear, clear discharge. Mucous membranes moist. TM pearly morejon with dull light reflex bilaterally; no tragal tenderness. Oropharynx not erythematous without lesions. Tonsils not enlarged and without exudate, no drooling, no hoarseness, no trismus, uvula midline. NECK: Supple. No lymphadenopathy CHEST: Clear to auscultation, breath sounds equal. No wheezing, rhonchi, rales, or stridor. No respiratory distress, speaks in full sentences. HEART: Regular rate and rhythm. No murmur heard. SKIN: Warm, dry, no rash. NEURO: Alert and oriented x3. PSYCH: Normal mood and affect Course Course Emergency Course: Patient is aware of diagnosis, understands and agrees to treatment plan. Anticipatory guidance given. Patient agrees to follow-up as directed and is aware of reasons to seek care at the emergency department. Portions of this record may have been created with voice recognition software Level of Care: Express Care Visit Vital Signs Vital signs: Vital Signs Temperature 98.4 F 04/15/21 14:21 Pulse Rate 112 H 04/15/21 14:21 Respiratory Rate 20 04/15/21 14:21 Blood Press
== END 2021-04-15 16:00 | disposition home or self-care (01) ==
PROVIDERS: Emergency Provider Nurse Practitioner
DX: U07.1 COVID-19 (principal); H10.32 Unspecified acute conjunctivitis, left eye; L91.8 Other hypertrophic disorders of the skin; M19.90 Unspecified osteoarthritis, unspecified site; E66.9 Obesity, unspecified; Z68.43 Body mass index [BMI] 50.0-59.9, adult
CPT/HCPCS: 87081; 87426; 87880; 99213; C9803; G0463

== ENCOUNTER 2021-08-25 15:25 | Emergency (ER) | payer OTHER, SELFPAY ==
[2021-08-25 15:33] VITALS: BP 154/91; PULSE 105; RESP 24; TEMP 36.9; O2SAT 97
--- NOTE | 2021-08-25 15:35 | ED.URI ---
HPI - URI/Sore Throat General Chief Complaint: Upper Respiratory Infection Stated Complaint: uri Source: patient and RN notes reviewed Mode of arrival: ambulatory Limitations: no limitations History of Present Illness HPI Narrative: 55 year old male presented for c/o sinus pressure and congestion for 2 weeks. Endorses headache and upper teeth/cheek pressure. He used nebulizer machine yesterday due to congestion. has been taking Tylenol and PCP prescribed nebulizer, montelukast, and nasal spray on 08/17/2021. He has been compliant with medications. On 07/27/2021 he was prescribed Augmentin, he states he has at least 5 pills left because it upset his stomach. He denies associated shortness of breath, wheezing, nausea, vomiting, diarrhea, fevers or chills. MD elicited complaint: cough Related Data Home Medications Medication Instructions Recorded Confirmed loratadine 10 mg tablet (Claritin) 10 mg PO DAILY 02/01/21 04/15/21 albuterol sulfate ml 08/25/21 montelukast 10 mg tablet tablet 08/25/21 Allergies Allergy/AdvReac Type Severity Reaction Status Date / Time shellfish derived Allergy Severe Anaphylactic Verified 04/15/21 15:01 Shock Review of Systems Review of Systems: CONSTITUTIONAL: denies malaise, chills, sweats, fever EYES: Denies visual changes, redness, or discharge ENT: Reports rhinorrhea, congestion, sinus pain CARDIOVASCULAR: Denies chest pain, palpitations, edema RESPIRATORY: Reports cough, post nasal drainage. Denies dyspnea GASTROINTESTINAL: Denies abdominal pain, nausea, vomiting, diarrhea SKIN: Denies rash or itching MUSCULOSKELETAL: denies myalgia NEUROLOGIC: reports headache PMFSH Past Medical History Medical History Arthritis Kidney stones Obesity Seasonal allergies Surgical History Surgical History History of nasal surgery Family History Family History Mother Family history of rheumatoid arthritis Family history of diabetes mellitus in first degree relative Family history of congestive heart failure Sibling Patient's sister is in good health Patient's brother is in good health Other Diabetes mellitus Family history of heart disease in male family member before age 55 Social History Social History Smoking status: Never smoker Alcohol intake: never Substance use: never Gender identity (if verbalized by the patient): Male Exam Narrative: GENERAL: Ill-appearing, nontoxic HEAD: Normocephalic EYES: conjunctivae clear ENT: Mucous membranes moist. TM pearly morejon with dull light reflex bilaterally; no tragal tenderness. Oropharynx erythematous without lesions or exudate, no drooling, no hoarseness, no trismus, uvula midline. NECK: Supple. No lymphadenopathy CHEST: Clear to auscultation, breath sounds equal. HEART: Regular rate and rhythm. No murmur heard. SKIN: Warm, dry, no rash. NEURO: Alert and oriented x3. PSYCH: Normal mood and affect Course Course Emergency Course: Patient is aware of diagnosis, understands and agrees to treatment plan. Anticipatory guidance given. Patient agrees to follow-up as directed and is aware of reasons to seek care at the emergency department. Portions of this record may have been created with voice recognition software Level of Care: Express Care Visit Vital Signs Vital signs: Vital Signs Temperature 98.4 F 08/25/21 15:33 Pulse Rate 105 H 08/25/21 15:33 Respiratory Rate 24 H 08/25/21 15:33 Blood Pressure 154/91 H 08/25/21 15:33 Pulse Oximetry 97 08/25/21 15:33 Oxygen Delivery Room Air 08/25/21 15:33 Temperature 98.4 F 08/25/21 15:33 Pulse Rate 105 H 08/25/21 15:33 Respiratory Rate 24 H 08/25/21 15:33 Blood Pressure 154/91 H 08/25/21 15:33 Pulse Oximetry 97
== END 2021-08-25 15:54 | disposition home or self-care (01) ==
PROVIDERS: Emergency Provider Nurse Practitioner Family
DX: J06.9 Acute upper respiratory infection, unspecified (principal); E66.9 Obesity, unspecified; Z68.43 Body mass index [BMI] 50.0-59.9, adult
CPT/HCPCS: 99213; G0463

== ENCOUNTER 2022-03-14 16:35 | Emergency (ER) | payer OTHER, SELFPAY ==
--- NOTE | ~2022-03-14 | XR_ITS ---
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 RESULT: Lines, tubes, and devices: None. Lungs and pleura: Prominent vascular interstitium and cuffing with scattered subsegmental airspace o pacities. Cardiomediastinal silhouette: Stable. Other: No acute osseous or upper abdominal finding. IMPRESSION: Pulmonary opacities may represent respiratory bronchiolitis with scattered atelectasis versus broncho pneumonia. Reviewed, dictated and finalized at location [facility] IMPRESSION: Pulmonary opacities may represent respiratory bronchiolitis with scattered atel ectasis versus bronchopneumonia.
[2022-03-14 16:53] VITALS: BP 152/74; PULSE 109; RESP 16; TEMP 37.3; O2SAT 97
--- NOTE | 2022-03-14 17:40 | ED.URI ---
HPI - URI/Sore Throat General Chief Complaint: Upper Respiratory Infection Stated Complaint: uri Time Seen by Provider: 03/14/22 17:40 Source: patient, RN notes reviewed and old records reviewed Mode of arrival: ambulatory Limitations: no limitations History of Present Illness HPI Narrative: 56-year-old male presents to [facility] with complaints of not feeling well for 3 or 4 days. Coughing up yellow and green stuff. Denies fevers. States that he has taken everything he can think of [id number]. Takes Claritin. 2-3 hours ago started with a red eye. Patient states that he has concern for pneumonia. Has had multiple episodes. Related Data Home Medications Medication Instructions Recorded Confirmed loratadine 10 mg tablet (Claritin) 10 mg PO DAILY 02/01/21 03/14/22 montelukast 10 mg tablet 10 tablet DIRECTED 08/25/21 03/14/22 dulaglutide 1.5 mg/0.5 mL 1.5 mg subcut DIRECTED 03/14/22 03/14/22 subcutaneous pen injector (Trulicity) Allergies Allergy/AdvReac Type Severity Reaction Status Date / Time shellfish derived Allergy Severe Anaphylactic Verified 04/15/21 15:01 Shock Review of Systems Review of Systems: All systems reviewed & are unremarkable except as noted in HPI and below Constitutional: Constitutional: Reports as per HPI and Reports fatigue Eyes: Eyes: Reports as per HPI, Denies change in vision and Denies photophobia ENT: Reports as per HPI and Reports nasal congestion Cardiovascular: Cardiovascular: Reports no additional cardiovascular complaints, Denies chest pain and Denies dyspnea Respiratory: Respiratory: Reports as per HPI, Reports no additional respiratory complaints, Denies chest congestion, Reports cough, Denies dyspnea and Denies wheezing Gastrointestinal: Gastrointestinal: Reports no additional gastrointestinal complaints, Denies abdominal pain, Denies nausea and Denies vomiting Musculoskeletal: Musculoskeletal: Reports no additional musculoskeletal complaints Integumentary/Breasts: Skin/Breast: Reports system reviewed and no additional complaints, except as docu Neurologic: Reports system reviewed and no additional complaints, except as documented Psychiatric: Psychiatric: Reports no additional psychiatric complaints Allergic/Immunologic: Allergic/Immunologic: Reports no additional allergic/immunologic complaints PMFSH Past Medical History Medical History Arthritis Kidney stones Obesity Seasonal allergies Surgical History Surgical History History of nasal surgery Family History Family History Mother Family history of rheumatoid arthritis Family history of diabetes mellitus in first degree relative Family history of congestive heart failure Sibling Patient's sister is in good health Patient's brother is in good health Other Diabetes mellitus Family history of heart disease in male family member before age 55 Social History Social History Smoking status: Never smoker Alcohol intake: never Substance use: never Gender identity (if verbalized by the patient): Male Comments At the time of my signature, I reviewed and agree with the nursing past medical, surgical, social, and family history. There is no relevant family history pertinent to the patient complaint. Exam Const: General: cooperative, comfortable, no acute distress, well developed, alert, ill appearing acutely and chronically and well nourished Nutritional Appearance: well nourished and obese morbidly obese Orientation/consciousness: patient oriented x3 Limitations: no limitations HENMT: Head: normal to inspection Ears: hearing grossly normal bilaterally and external ears normal Face/Nose/Sinus: Normal external nose present, Normal nares present, Normal nasa
== END 2022-03-14 18:48 | disposition home or self-care (01) ==
PROVIDERS: Emergency Provider Nurse Practitioner
DX: H10.31 Unspecified acute conjunctivitis, right eye (principal); J18.0 Bronchopneumonia, unspecified organism; M19.90 Unspecified osteoarthritis, unspecified site; E66.9 Obesity, unspecified; Z68.43 Body mass index [BMI] 50.0-59.9, adult
CPT/HCPCS: 71046; 99213; A9270; G0463

== ENCOUNTER 2022-06-03 15:58 | Emergency (ER) | payer OTHER, SELFPAY ==
--- NOTE | ~2022-06-03 | XR_ITS ---
EXAMINATION: XR elbow RT min 3V INDICATION: Right elbow pain TECHNIQUE: Four views of the right elbow are obtained. COMPARISON: None available FINDINGS: Bone alignment is normal. There is no fracture. 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 The soft tissues are normal. IMPRESSION: 1. No acute osseous abnormality. Reviewed, dictated and finalized at location [facility]
[2022-06-03 16:17] VITALS: BP 135/67; PULSE 108; RESP 18; TEMP 36.6; O2SAT 98
[2022-06-03 16:19] VITALS: BP 135/67; PULSE 108; RESP 18; TEMP 36.6; O2SAT 98
--- NOTE | 2022-06-03 16:55 | ED.UPPEXIN ---
HPI - Extremity Injury (Upper) General Chief Complaint: Extremity Injury, Upper Stated Complaint: Right Elbow Pain Time Seen by Provider: 06/03/22 16:30 Source: patient Mode of arrival: ambulatory Limitations: no limitations History of Present Illness HPI narrative: Frank is a 56-year-old male patient presenting to the clinic today with complaints of right elbow pain/injury. He reports he was carrying approximately a 60 gown bucket of fluids today and feels as though he may have hyperextended his right elbow. He states that he was caring and felt a pop and had instant pain with pain radiating down to his hand. Related Data Home Medications Medication Instructions Recorded Confirmed loratadine 10 mg tablet (Claritin) 10 mg PO DAILY 02/01/21 06/03/22 montelukast 10 mg tablet 10 tablet DIRECTED 08/25/21 06/03/22 dulaglutide 1.5 mg/0.5 mL 1.5 mg subcut DIRECTED 03/14/22 06/03/22 subcutaneous pen injector (Trulicity) Allergies Allergy/AdvReac Type Severity Reaction Status Date / Time shellfish derived Allergy Severe Anaphylactic Verified 06/03/22 16:18 Shock Review of Systems Review of Systems: Pertinent positives per HPI. Patient denies any fever, chills, rash, headache, visual changes, dizziness, cough, runny nose, sore throat, shortness of breath, chest pain, palpitations, nausea, vomiting, diarrhea, constipation, abdominal pain, or any urinary issues. [facility] Past Medical History Medical History Arthritis Kidney stones Obesity Seasonal allergies Surgical History Surgical History History of nasal surgery Family History Family History Mother Family history of rheumatoid arthritis Family history of diabetes mellitus in first degree relative Family history of congestive heart failure Sibling Patient's sister is in good health Patient's brother is in good health Other Diabetes mellitus Family history of heart disease in male family member before age 55 Social History Social History Smoking status: Never smoker Alcohol intake: never Substance use: never Living arrangements: with family Gender identity (if verbalized by the patient): Male Comments At the time of my signature, I reviewed and agree with the nursing past medical, surgical, social, and family history. There is no relevant family history pertinent to the patient complaint. Exam Narrative: General: Well-developed, well nourished, in no apparent distress Head: Normocephalic, atraumatic. Cardio: Regular rate and rhythm, s1 and s2 normal, no murmur appreciated. Resp: Clear to auscultation bilaterally, no rhonchi, rales, wheezing or rubs. Musculoskeletal: No deformity,tender to palpation over the posterior elbow, mild popping felt with range of motion, pain with full extension of the elbow, grossly normal range of motion, muscle strength strong and equal, peripheral pulse strong, no edema, no cyanosis, normal gait and station Course Course Emergency Course: Portions of this record may have been created with voice recognition software. Level of Care: Express Care Visit Vital Signs Vital signs: Vital Signs Temperature 36.6 C 06/03/22 16:17 Pulse Rate 108 H 06/03/22 16:17 Respiratory Rate 18 06/03/22 16:17 Blood Pressure 135/67 06/03/22 16:17 Pulse Oximetry 98 06/03/22 16:17 Oxygen Delivery Room Air 06/03/22 16:17 Temperature 36.6 C 06/03/22 16:19 Pulse Rate 108 H 06/03/22 16:19 Respiratory Rate 18 06/03/22 16:19 Blood Pressure 135/67 06/03/22 16:19 Pulse Oximetry 98 06/03/22 16:19 Oxygen Delivery Room Air 06/03/22 16:19 Vital signs reviewed MDM - Extremity Injury (Upper) MDM Narrative Medical decision making narr
== END 2022-06-03 17:08 | disposition home or self-care (01) ==
PROVIDERS: Emergency Provider Nurse Practitioner Family; PCP Physician Assistant
DX: S56.911A Strain of unspecified muscles, fascia and tendons at forearm level, right arm, initial encounter (principal); X50.0XXA Overexertion from strenuous movement or load, initial encounter; M19.90 Unspecified osteoarthritis, unspecified site; E66.9 Obesity, unspecified; Z68.43 Body mass index [BMI] 50.0-59.9, adult
CPT/HCPCS: 73080; 99213; A4565; G0463

== ENCOUNTER 2022-06-17 16:33 | Emergency (ER) | payer OTHER, SELFPAY ==
[2022-06-17 16:44] VITALS: BP 155/91; PULSE 105; RESP 20; TEMP 36.4; O2SAT 96
--- NOTE | 2022-06-17 16:57 | ED.URI ---
HPI - URI/Sore Throat General Chief Complaint: Upper Respiratory Infection Stated Complaint: Sinus Time Seen by Provider: 06/17/22 16:57 Source: patient Mode of arrival: ambulatory Limitations: no limitations History of Present Illness HPI Narrative: patient is a 56-year-old male that presents with sinus pain, congestion, ear pain, sore throat, ER postnasal drip, cough for 4 days. Patient takes Claritin every day and has been using Mucinex with no relief. denies any fever or chills. Related Data Home Medications Medication Instructions Recorded Confirmed loratadine 10 mg tablet (Claritin) 10 mg PO DAILY 02/01/21 06/17/22 montelukast 10 mg tablet 10 tablet DIRECTED 08/25/21 06/17/22 dulaglutide 1.5 mg/0.5 mL 1.5 mg subcut DIRECTED 03/14/22 06/17/22 subcutaneous pen injector (Trulicity) Allergies Allergy/AdvReac Type Severity Reaction Status Date / Time shellfish derived Allergy Severe Anaphylactic Verified 06/17/22 16:49 Shock Review of Systems Review of Systems: All systems reviewed & are unremarkable except as noted in HPI and below Constitutional: Constitutional: Denies body ache(s), Denies fever(s), Denies headache(s), Denies malaise and Denies weakness Eyes: Eyes: Denies loss of vision ENT: Reports otalgia, Reports headache(s), Reports nasal congestion, Reports sinus pain and Reports sore throat Cardiovascular: Cardiovascular: Denies chest pain, Denies irregular heart rhythm and Denies dyspnea Respiratory: Respiratory: Reports cough and Denies dyspnea Gastrointestinal: Gastrointestinal: Denies abdominal pain, Denies melena, Denies hematochezia, Denies diarrhea, Denies nausea and Denies vomiting Musculoskeletal: Musculoskeletal: Denies back pain, Denies myalgias and Denies arthralgias Integumentary/Breasts: Skin/Breast: Denies pruritus and Denies rash Neurologic: Denies headache(s), Denies loss of vision and Denies weakness Psychiatric: Psychiatric: Reports no additional psychiatric complaints [facility] Past Medical History Medical History Arthritis Kidney stones Obesity Seasonal allergies Surgical History Surgical History History of nasal surgery Family History Family History Mother Family history of rheumatoid arthritis Family history of diabetes mellitus in first degree relative Family history of congestive heart failure Sibling Patient's sister is in good health Patient's brother is in good health Other Diabetes mellitus Family history of heart disease in male family member before age 55 Social History Social History Smoking status: Never smoker Alcohol intake: never Substance use: never Living arrangements: with family Gender identity (if verbalized by the patient): Male Comments At time of signature, agree with nursing past medical, surgical, social and family history. There is no relevant family history pertinent to the presenting complaint. Exam Const: General: cooperative, healthy appearing, comfortable, no acute distress and well nourished Nutritional Appearance: well nourished Orientation/consciousness: patient oriented x3 Limitations: no limitations HENMT: Head: normal to inspection, normocephalic and atraumatic Ears: external ears normal and TM's normal bilaterally Face/Nose/Sinus: Normal external nose present, normal facial exam, face symmetric and Facial tenderness on exam of face and sinuses Face and sinus: normal facial exam and face symmetric Mouth: Yes Normal oral and palatal mucosa present, Yes lip normal and Yes moist mucous membranes Teeth and gingiva: dentition normal Throat: posterior oropharynx normal, uvula midline and abnormal tonsil bilateral erythema and exudates Eyes: Gene
== END 2022-06-17 17:30 | disposition home or self-care (01) ==
PROVIDERS: Emergency Provider Nurse Practitioner Family; PCP Physician Assistant
DX: J40 Bronchitis, not specified as acute or chronic (principal); J06.9 Acute upper respiratory infection, unspecified
CPT/HCPCS: 87081; 87880; 99213; G0463

== ENCOUNTER 2023-03-01 09:41 | Emergency (ER) | payer OTHER, SELFPAY ==
--- NOTE | 2023-03-01 09:43 | ED.URI ---
HPI - URI/Sore Throat General Chief Complaint: Upper Respiratory Infection Stated Complaint: Sinus Time Seen by Provider: 03/01/23 09:43 Source: patient Mode of arrival: ambulatory Limitations: no limitations History of Present Illness HPI Narrative: Patient is a 57-year-old male who presents with sinus congestion and pressure along with fever that started Sunday. Patient takes daily Claritin and has also been taking Mucinex and Motrin. Denies any sore throat, cough, ear pain, nausea, vomiting, diarrhea. Related Data Home Medications Medication Instructions Recorded Confirmed loratadine 10 mg tablet (Claritin) 10 mg PO DAILY 02/01/21 06/17/22 montelukast 10 mg tablet 10 tablet DIRECTED 08/25/21 06/17/22 dulaglutide 1.5 mg/0.5 mL 1.5 mg subcut DIRECTED 03/14/22 06/17/22 subcutaneous pen injector (Trulicity) Allergies Allergy/AdvReac Type Severity Reaction Status Date / Time shellfish derived Allergy Severe Anaphylactic Verified 03/01/23 09:49 Shock Review of Systems Review of Systems: All systems reviewed & are unremarkable except as noted in HPI and below Constitutional: Constitutional: Denies body ache(s), Denies chills, Denies fatigue, Reports fever(s), Denies headache(s), Denies malaise and Denies weakness Eyes: Eyes: Denies blurry vision, Denies itchy eyes and Denies loss of vision ENT: Denies otalgia, Denies headache(s), Reports nasal congestion, Denies sinus pain, Reports sinus pressure and Denies sore throat Cardiovascular: Cardiovascular: Denies chest pain, Denies irregular heart rhythm and Denies dyspnea Respiratory: Respiratory: Denies cough and Denies dyspnea Gastrointestinal: Gastrointestinal: Denies abdominal pain, Denies diarrhea, Denies nausea and Denies vomiting Musculoskeletal: Musculoskeletal: Denies back pain, Denies myalgias and Denies arthralgias Integumentary/Breasts: Skin/Breast: Denies pruritus and Denies rash Neurologic: Denies headache(s), Denies loss of vision and Denies weakness Psychiatric: Psychiatric: Reports no additional psychiatric complaints Endocrine: Endocrine: Denies fatigue Allergic/Immunologic: Allergic/Immunologic: Denies itchy eyes PMFSH Past Medical History Medical History Arthritis Kidney stones Obesity Seasonal allergies Surgical History Surgical History History of nasal surgery Family History Family History Mother Family history of rheumatoid arthritis Family history of diabetes mellitus in first degree relative Family history of congestive heart failure Sibling Patient's sister is in good health Patient's brother is in good health Other Diabetes mellitus Family history of heart disease in male family member before age 55 Social History Social History Smoking status: Never smoker Alcohol intake: never Substance use: never Living arrangements: with family Gender identity (if verbalized by the patient): Male Comments At time of signature, agree with nursing past medical, surgical, social and family history. There is no relevant family history pertinent to the presenting complaint. Exam Const: General: cooperative, healthy appearing, comfortable, no acute distress and well nourished Nutritional Appearance: well nourished Orientation/consciousness: patient oriented x3 Limitations: no limitations HENMT: Head: normal to inspection, normocephalic and atraumatic Ears: hearing grossly normal bilaterally, external ears normal, TM's normal bilaterally, EAC's normal and no periauricular adenopathy Face/Nose/Sinus: Normal external nose present, Abnormal mucous membranes and turbinates present erythematous bilateral and diffuse, normal facial exam, sinuses nontender and face symmetric Face and sinus
[2023-03-01 09:55] VITALS: BP 152/88; PULSE 114; RESP 20; TEMP 38.1; O2SAT 97
== END 2023-03-01 10:38 | disposition home or self-care (01) ==
PROVIDERS: Emergency Provider Nurse Practitioner Family; PCP Physician Assistant
DX: U07.1 COVID-19 (principal); M19.90 Unspecified osteoarthritis, unspecified site; E66.9 Obesity, unspecified; Z68.43 Body mass index [BMI] 50.0-59.9, adult
CPT/HCPCS: 87081; 87426; 87804; 87880; 99213; C9803; G0463

== ENCOUNTER 2023-04-06 13:29 | Emergency (ER) | payer OTHER, SELFPAY ==
[2023-04-06 13:50] VITALS: BP 146/85; PULSE 114; RESP 22; TEMP 36.7; O2SAT 97
--- NOTE | 2023-04-06 14:34 | ED.URI ---
HPI - URI/Sore Throat General Chief Complaint: Upper Respiratory Infection Stated Complaint: Sinus Time Seen by Provider: 04/06/23 14:35 Source: patient and RN notes reviewed Mode of arrival: ambulatory Limitations: no limitations History of Present Illness HPI Narrative: cough, runny nose and congestion. Post nasal drainage causes vomiting the mucous, states he vomited lunch today. Pt was seen by pcp 2 days ago, got his flu shot, and changed nasal spray and antihistamine. States symptoms worsened last night. Woke this morning feeling fatigue and achy. Denies sob, wheezing, lethargy, or fever. was sick last week. Reports hx sinus 'issues' and fractured nose MD elicited complaint: cough Related Data Home Medications Medication Instructions Recorded Confirmed loratadine 10 mg tablet (Claritin) 10 mg PO DAILY 02/01/21 06/17/22 montelukast 10 mg tablet 10 tablet DIRECTED 08/25/21 06/17/22 dulaglutide 1.5 mg/0.5 mL 1.5 mg subcut DIRECTED 03/14/22 06/17/22 [facility] azelastine 137 mcg (0.1 %) nasal intranasal 04/06/23 spray aerosol benzonatate 100 mg capsule 100 mg PO BID cough 04/06/23 Allergies Allergy/AdvReac Type Severity Reaction Status Date / Time shellfish derived Allergy Severe Anaphylactic Verified 04/06/23 13:55 Shock Review of Systems Review of Systems: CONSTITUTIONAL: Endorses malaise, denies chills, sweats, fever EYES: Denies visual changes, redness, or discharge ENT: Reports rhinorrhea, congestion, sinus pain, denies otalgia, sore throat CARDIOVASCULAR: Denies chest pain, palpitations, edema RESPIRATORY: Reports cough, post nasal drainage. Denies dyspnea GASTROINTESTINAL: Reports vomiting Denies abdominal pain, nausea, diarrhea SKIN: Denies rash or itching MUSCULOSKELETAL: Endorses myalgia NEUROLOGIC: Denies headache PMFSH Past Medical History Medical History Arthritis Kidney stones Obesity Seasonal allergies Surgical History Surgical History History of nasal surgery Family History Family History Mother Family history of rheumatoid arthritis Family history of diabetes mellitus in first degree relative Family history of congestive heart failure Sibling Patient's sister is in good health Patient's brother is in good health Other Diabetes mellitus Family history of heart disease in male family member before age 55 Social History Social History Smoking status: Never smoker Alcohol intake: never Substance use: never Living arrangements: with family Gender identity (if verbalized by the patient): Male Exam Narrative: GENERAL: mildly Ill-appearing, nontoxic no acute distress. EYES: conjunctivae clear ENT: Mucous membranes moist. Nasal congestion. TMs pearly morejon with dull light reflex bilaterally; no tragal tenderness. Oropharynx not erythematous without lesions or exudate, no drooling, no hoarseness, no trismus, uvula midline. NECK: Supple. No lymphadenopathy CHEST: Clear to auscultation, breath sounds equal. No wheezing, rhonchi, rales, or stridor. No respiratory distress, speaks in full sentences. HEART: Regular rate and rhythm. No murmur heard. ABD: large, nontender SKIN: Warm, dry, no rash. NEURO: Alert and oriented x3. PSYCH: Normal mood and affect Course Course Emergency Course: Patient is aware of diagnosis, understands and agrees to treatment plan. Anticipatory guidance given. Patient agrees to follow-up as directed and is aware of reasons to seek care at the emergency department. Portions of this record may have been created with voice recognition software Level of Care: Express Care Visit Vital Signs Vital signs: Vital Signs Temperature 98.1 F 04/06/23 13:50 Pulse Ra
== END 2023-04-06 15:13 | disposition home or self-care (01) ==
PROVIDERS: Emergency Provider Nurse Practitioner Family; PCP Physician Assistant
DX: J06.9 Acute upper respiratory infection, unspecified (principal); Z79.899 Other long term (current) drug therapy; Z20.822 Contact with and (suspected) exposure to COVID-19
CPT/HCPCS: 87426; 87804; 99213; C9803; G0463

== ENCOUNTER 2023-04-09 14:03 | Emergency (ER) | payer OTHER, SELFPAY ==
[2023-04-09 14:16] VITALS: BP 155/73; PULSE 56; RESP 18; TEMP 37.3; O2SAT 96
--- NOTE | 2023-04-09 15:01 | ED.URI ---
HPI - URI/Sore Throat General Chief Complaint: Upper Respiratory Infection Stated Complaint: nasal congestion,cough Time Seen by Provider: 04/09/23 15:01 Source: patient Mode of arrival: ambulatory Limitations: no limitations History of Present Illness HPI Narrative: 57-year-old male presents with complaint of nasal congestion, sinus pressure, cough, postnasal drainage 6 days. Saw his primary care physician and was started on nasal spray and Claritin. Was also given benzonatate for cough. Was seen at urgent care 2 days later and given Augmentin. Patient reports that he continues to have drainage and is coughing. No chest pain or shortness of breath. Afebrile. Patient requesting work note. All systems reviewed and negative except as noted above. Related Data Home Medications Medication Instructions Recorded Confirmed loratadine 10 mg tablet (Claritin) 10 mg PO DAILY 02/01/21 04/09/23 montelukast 10 mg tablet 10 tablet DIRECTED 08/25/21 04/09/23 dulaglutide 1.5 mg/0.5 mL 1.5 mg subcut DIRECTED 03/14/22 04/09/23 subcutaneous pen injector (Trulicity) benzonatate 100 mg capsule 100 mg PO BID cough 04/06/23 04/09/23 azelastine 137 mcg (0.1 %) nasal 2 spray intranasal BID 04/09/23 04/09/23 spray aerosol Allergies Allergy/AdvReac Type Severity Reaction Status Date / Time shellfish derived Allergy Severe Anaphylactic Verified 04/09/23 14:21 Shock Review of Systems Review of Systems: CONSTITUTIONAL: Denies fever, chills, or sweats. EYES: Denies visual changes, redness, or discharge. ENT: Reports rhinorrhea, congestion, sore throat, bilateral ear pressure CARDIOVASCULAR: Denies chest pain, palpitations, or edema. RESPIRATORY: reports cough . Denies dyspnea. GASTROINTESTINAL: Denies abdominal pain, nausea, vomiting, or diarrhea. GENITOURINARY: Denies dysuria or hematuria. SKIN: Denies rash or itching. MUSCULOSKELETAL: Denies back pain, joint pain, or myalgia. NEUROLOGIC: Denies headache, numbness, or weakness. PSYCHIATRIC: Denies anxiety or depression. All other systems reviewed are negative, except as documented in HPI. [facility] Past Medical History Medical History Arthritis Kidney stones Obesity Seasonal allergies Surgical History Surgical History History of nasal surgery Family History Family History Mother Family history of rheumatoid arthritis Family history of diabetes mellitus in first degree relative Family history of congestive heart failure Sibling Patient's sister is in good health Patient's brother is in good health Other Diabetes mellitus Family history of heart disease in male family member before age 55 Social History Social History Smoking status: Never smoker Alcohol intake: never Substance use: never Living arrangements: with family Gender identity (if verbalized by the patient): Male Comments At time of signature, agree with nursing past medical, surgical, social and family history. There is no relevant family history pertinent to the presenting complaint. Exam Narrative: GENERAL: This is a well-nourished, well-developed patient, in no apparent distress. HEAD: normocephalic, atraumatic. EYES: PERRL. Sclera clear/white. Vision is grossly intact. EARS: External ears normal, auditory canals clear and without drainage, fluid bilateral TMs without erythema orperforation. Hearing grossly intact. NOSE: External nose normal with clear nasal drainage, erythema and swelling to bilateral nares. THROAT: Mucous membranes moist, Erythema with postnasal drainage. NECK: Neck supple, non-tender without lymphadenopathy, masses or thyromegaly. CARDIOVASCULAR: Regular rate and rhythm without murmurs, gallops, or rubs. RESPIRATORY: Clear
== END 2023-04-09 15:18 | disposition home or self-care (01) ==
PROVIDERS: Emergency Provider Nurse Practitioner Family; PCP Physician Assistant
DX: J06.9 Acute upper respiratory infection, unspecified (principal); M19.90 Unspecified osteoarthritis, unspecified site; E66.9 Obesity, unspecified; Z68.43 Body mass index [BMI] 50.0-59.9, adult
CPT/HCPCS: 99211; G0463

== ENCOUNTER 2023-07-23 14:24 | Emergency (ER) | payer OTHER, SELFPAY ==
--- NOTE | 2023-07-23 14:27 | ED.URI ---
HPI - URI/Sore Throat General Chief Complaint: Upper Respiratory Infection Stated Complaint: Sinus/Cough Time Seen by Provider: 07/23/23 15:13 Source: patient, RN notes reviewed and old records reviewed Mode of arrival: ambulatory Limitations: no limitations History of Present Illness HPI Narrative: 57-year-old male presents [facility] with complaints of cough, sinus congestion, sinus drainage, bilateral ear pain, sore throat and headache that started Sunday, 2 days ago Reports that he has taken Tylenol cold and Sinus. Onset (ago): day(s) (2) Related Data Home Medications Medication Instructions Recorded Confirmed loratadine 10 mg tablet (Claritin) 10 mg PO DAILY 02/01/21 07/23/23 montelukast 10 mg tablet 10 tablet DIRECTED 08/25/21 07/23/23 dulaglutide 1.5 mg/0.5 mL 1.5 mg subcut DIRECTED 03/14/22 07/23/23 subcutaneous pen injector (Trulicity) albuterol sulfate 90 mcg/actuation 90 mcg inhalation DIRECTED 07/23/23 07/23/23 aerosol inhaler Allergies Allergy/AdvReac Type Severity Reaction Status Date / Time shellfish derived Allergy Severe Anaphylactic Verified 04/09/23 14:21 Shock Review of Systems Review of Systems: All systems reviewed & are unremarkable except as noted in HPI and below Constitutional: Constitutional: Reports no additional constitutional complaints Eyes: Eyes: Reports no additional eye complaints ENT: Reports as per HPI Cardiovascular: Cardiovascular: Reports no additional cardiovascular complaints, Denies chest pain and Denies dyspnea Respiratory: Respiratory: Reports as per HPI, Denies chest congestion, Reports cough and Denies dyspnea Gastrointestinal: Gastrointestinal: Reports no additional gastrointestinal complaints, Denies abdominal pain, Denies nausea and Denies vomiting Musculoskeletal: Musculoskeletal: Reports no additional musculoskeletal complaints Integumentary/Breasts: Skin/Breast: Reports system reviewed and no additional complaints, except as docu Neurologic: Reports system reviewed and no additional complaints, except as documented Psychiatric: Psychiatric: Reports no additional psychiatric complaints Allergic/Immunologic: Allergic/Immunologic: Reports no additional allergic/immunologic complaints PMF Past Medical History Medical History Arthritis Kidney stones Obesity Seasonal allergies Surgical History Surgical History History of nasal surgery Family History Family History Mother Family history of rheumatoid arthritis Family history of diabetes mellitus in first degree relative Family history of congestive heart failure Sibling Patient's sister is in good health Patient's brother is in good health Other Diabetes mellitus Family history of heart disease in male family member before age 55 Social History Social History Smoking status: Never smoker Alcohol intake: never Substance use: never Living arrangements: with family Gender identity (if verbalized by the patient): Male Comments At the time of my signature, I reviewed and agree with the nursing past medical, surgical, social, and family history. There is no relevant family history pertinent to the patient complaint. Exam Const: General: cooperative, healthy appearing, comfortable, no acute distress, well developed, alert and well nourished Nutritional Appearance: well nourished and obese morbidly obese Orientation/consciousness: patient oriented x3 Limitations: no limitations HENMT: Head: normal to inspection Ears: hearing grossly normal bilaterally, external ears normal, TM's normal bilaterally, EAC's normal, mastoids normal and no periauricular adenopathy Face/Nose/Sinus: Normal external nose present, Normal nares present, Norm
[2023-07-23 14:40] VITALS: BP 126/89; PULSE 112; RESP 20; TEMP 36.9; O2SAT 98
== END 2023-07-23 15:30 | disposition home or self-care (01) ==
PROVIDERS: Emergency Provider Nurse Practitioner; PCP Physician Assistant
DX: J32.9 Chronic sinusitis, unspecified (principal); R09.82 Postnasal drip; Z20.822 Contact with and (suspected) exposure to COVID-19; M19.90 Unspecified osteoarthritis, unspecified site; E66.9 Obesity, unspecified; Z68.43 Body mass index [BMI] 50.0-59.9, adult
CPT/HCPCS: 87081; 87426; 87804; 87880; 99213; G0463

== ENCOUNTER 2023-12-06 16:13 | Emergency (ER) | payer OTHER, SELFPAY ==
--- NOTE | ~2023-12-06 | CT_ITS ---
EXAMINATION: CT LE RT wo con DATE: 12/06/2023 21:36 INDICATION: Right knee injury. TECHNIQUE: Computed tomography (CT) of the right knee was performed without intravenous contrast. Aut omated exposure control and iterative reconstruction technique were employed. The dose-length product was 1077.31 mGy-cm. COMPARISON: Right knee radiographs 12/06/2023 FINDINGS: Alignment is normal. No fracture. There is mild tricompartmental osteoarthritis of the knee . No knee joint effusion. There is subcutaneous edema in the lower leg. IMPRESSION: 1. Mild right knee osteoarthritis. Reviewed, dictated and finalized at location A.
--- NOTE | ~2023-12-06 | XR_ITS ---
EXAMINATION: XR knee RT 3V DATE: 12/06/2023 18:10 INDICATION: Right knee pain. Fall. TECHNIQUE: 3 views of right knee were obtained. COMPARISON: None. FINDINGS: Alignment is normal. No fracture. There is mild tricompartmental osteoarthritis. No knee donte int effusion. IMPRESSION: 1. Mild right knee osteoarthritis. Reviewed, dictated and finalized at location A.
[2023-12-06 16:22] VITALS: BP 149/73; PULSE 110; RESP 19; TEMP 36.8; O2SAT 94
--- NOTE | 2023-12-06 20:10 | ED.LOWEXIN ---
HPI - Extremity Injury (Lower) General Chief Complaint: Extremity Injury, Lower Stated Complaint: R knee pain Time Seen by Provider: 12/06/23 19:33 Source: patient and family Mode of arrival: ambulatory Limitations: no limitations History of Present Illness HPI Narrative: Patient presents complaint of right knee and proximal tibia pain after he fell down earlier today when he stepped off a platform and then fell down a truck ramp. Denies any other injuries did not hit his head or lose consciousness. He took 1 dose of ibuprofen prior to arrival. Not on anticoagulation. 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 Injury occurred approximately 4:00 a.m.. He states when the injury initially happened his kneecap point laterally and then went back into place spontaneously. He is experiencing tingling in his foot and numbness up his leg. Related Data Home Medications Medication Instructions Recorded Confirmed loratadine 10 mg tablet (Claritin) 10 mg PO DAILY 02/01/21 07/23/23 montelukast 10 mg tablet 10 tablet DIRECTED 08/25/21 07/23/23 dulaglutide 1.5 mg/0.5 mL 1.5 mg subcut DIRECTED 03/14/22 07/23/23 [facility] albuterol sulfate 90 mcg/actuation 90 mcg inhalation DIRECTED 07/23/23 07/23/23 aerosol inhaler Allergies Allergy/AdvReac Type Severity Reaction Status Date / Time shellfish derived Allergy Severe Anaphylactic Verified 04/09/23 14:21 Shock iohexol Allergy Vomiting Verified 12/06/23 21:13 [From contrast - CT, X-RAY] [facility] Past Medical History Medical History Arthritis Kidney stones Morbid obesity with BMI of 50.0-59.9, adult Seasonal allergies Surgical History Surgical History History of nasal surgery Family History Family History Mother Family history of rheumatoid arthritis Family history of diabetes mellitus in first degree relative Family history of congestive heart failure Sibling Patient's sister is in good health Patient's brother is in good health Other Diabetes mellitus Family history of heart disease in male family member before age 55 Social History Social History Smoking status: Never smoker Alcohol intake: never Substance use: never Living arrangements: with family Occupation/Education: occupation 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 HEAD: Normocephalic, atraumatic. EYES: Non injected, non icteric ENT: Nares clear, no rhinorrhea or epistaxis. NECK: Supple. CHEST: Speaking in full sentences. No respiratory distress. HEART: Tachycardic rate and rhythm. ABDOMEN: Soft, nondistended. EXTREMITIES: No lower extremity edema. Patient demonstrates 5/5 strength with bilateral ankle dorsiflexion plantar flexion. He has 5/5 strength with left knee flexion extension. With right knee extension 5/5 strength, 4/5 strength with flexion. SKIN: Warm, dry. Chronic venous stasis changes bilaterally. NEURO: No focal deficits. Alert and oriented x3. PSYCH: Normal mood and affect. Course Vital Signs Vital signs: Vital Signs Temperature 98.3 F 12/06/23 16:22 Pulse Rate 110 H 12/06/23 16:22 Respiratory Rate 19 12/06/23 16:22 Blood Pressure 149/73 H 12/06/23 16:22 Pulse Oximetry 94 12/06/23 16:22 Temperature 98.3 F 12/06/23 16:22 Pulse Rate 111 H 12/06/23 21:15 Respiratory Rate 18 12/06/23 21:15 Blood Pressure 144/97 H 12/06/23 21:15 Pulse Oximetry 94 12/06/23 21:15
[2023-12-06] MEDS: HYDROcodone/acetaminophen (*CRX) 5-325 MG TABLET 1 TAB PO (20:29)
[2023-12-06 20:30] VITALS: BP 140/95; PULSE 105; RESP 18; O2SAT 93
[2023-12-06 20:51] LABS: Basophils Percent Auto 0.4 % (0.2-1.2); Eosinophils Absolute Auto 0.3 K/mm3 (0-0.3); Hematocrit 45.7 % (42.0-52.0); Hemoglobin 14.9 g/dL (14.0-18.0); Immature Granulocyte Absolute 0.05 K/mm3 (0.00-0.031); Immature Granulocyte Percent A 0.5 % (0-0.5); Lymphocytes Absolute Auto 1.94 K/mm3 (0.9-3.2); Lymphocytes Percent Auto 18.2 % (18.3-44.2); Mean Corpuscular HGB Conc 32.6 g/dl (32-36); Mean Corpuscular Hemoglobin 29.9 pg (26-34); Mean Corpuscular Volume 91.8 fl (80-100); Mean Platelet Volume 10.7 fl (7.4-10.4); Monocytes Percent Auto 9.1 % (2.6-8.5); Neutrophils Absolute Auto 7.4 K/mm3 (1.3-6.7); Neutrophils Percent Auto 68.8 % (45.5-73.1); Platelet Count Result 238 k/mm3 (150-375); Red Blood Count 4.98 M/mm3 (4.6-6.20); Red Cell Distribution Width 15.1 % (11.5-14.5); White Blood Count 10.7 K/mm3 (4.5-10.0)
[2023-12-06 21:01] LABS: Alanine Aminotransferase 30 U/L (6-50); Albumin Level 4.4 g/dL (3.5-5.1); Alkaline Phosphatase 57 U/L (38-126); Anion Gap 11 mmol/L (4-12); Aspartate Amino Transferase 32 U/L (17-59); Bilirubin,Total 0.8 mg/dL (0.2-1.3); Blood Urea Nitrogen 18 mg/dL (9-20); Calcium 8.8 mg/dL (8.4-10.2); Carbon Dioxide 27 mmol/L (22-30); Chloride 97 mmol/L (98-107); Estimated CRCL calculation 139 ml/min; Estimated Glomerular Filt Rate > 60; Glucose 108 mg/dL (65-110); Potassium 3.8 mmol/L (3.4-5.0); Sodium 135 mmol/L (137-145)
[2023-12-06 21:03] LABS: INR 1.1; Partial Thromboplastin Time 26.1 Seconds (22.3-36.8); Prothrombin Time 14.3 Seconds (11.1-14.7)
[2023-12-06 21:15] VITALS: BP 144/97; PULSE 111; RESP 18; O2SAT 94
--- NOTE | 2023-12-06 21:15 | PC.NURSE ---
Md Vazquez notified of pt updated allergy list.
[2023-12-06] MEDS: methocarbamoL 500 MG TABLET 1000 MG PO (22:48)
[2023-12-06] MEDS: KETOROLAC 30 MG/ML VIAL (*BKC) IM (22:48)
== END 2023-12-06 22:56 | disposition home or self-care (01) ==
PROVIDERS: Emergency Provider Student in an Organized Health Care Education/Training Program; PCP Physician Assistant
DX: S89.91XA Unspecified injury of right lower leg, initial encounter (principal); M17.11 Unilateral primary osteoarthritis, right knee; D72.829 Elevated white blood cell count, unspecified; I87.8 Other specified disorders of veins; W10.2XXA Fall (on)(from) incline, initial encounter; Z79.85 Long-term (current) use of injectable non-insulin antidiabetic drugs; Z79.51 Long term (current) use of inhaled steroids; E66.01 Morbid (severe) obesity due to excess calories; Z68.43 Body mass index [BMI] 50.0-59.9, adult
CPT/HCPCS: 36415; 73562; 73700; 80053; 85025; 85610; 85730; 96372; 99284; A9270; J1885

== ENCOUNTER 2024-04-28 10:13 | Emergency (ER) | payer OTHER, SELFPAY ==
[2024-04-28 10:22] VITALS: BP 154/89; PULSE 97; RESP 20; TEMP 36.7; O2SAT 97
--- NOTE | 2024-04-28 10:50 | ED.URI ---
HPI - URI/Sore Throat General Chief Complaint: Upper Respiratory Infection Stated Complaint: Sinus/Cough Time Seen by Provider: 04/28/24 10:38 Source: patient and RN notes reviewed Mode of arrival: ambulatory Limitations: no limitations History of Present Illness HPI Narrative: Patient presents today with a one-week history of nasal congestion, postnasal drip, sore throat, mild dizziness, cough, mild shortness of breath. He has been using [id number] medication and an albuterol inhaler with mild relief. No history of asthma or COPD. He is a nonsmoker. History of diabetes for which he takes Trulicity. Related Data Home Medications ?Medication ?Instructions ?Recorded ?Confirmed ?Last Taken ?Type loratadine 10 mg tablet (Claritin) 10 mg PO DAILY 02/01/21 07/23/23 Unknown History montelukast 10 mg tablet 10 tablet DIRECTED 08/25/21 07/23/23 Unknown History dulaglutide 1.5 mg/0.5 mL 1.5 mg subcut DIRECTED 03/14/22 07/23/23 Unknown History subcutaneous pen injector (Trulicity) albuterol sulfate 90 mcg/actuation 90 mcg inhalation DIRECTED 07/23/23 07/23/23 Unknown History aerosol inhaler azelastine 137 mcg (0.1 %) nasal intranasal 04/28/24 Unknown History spray cetirizine 10 mg tablet mg 04/28/24 Unknown History Allergies Allergy/AdvReac Type Severity Reaction Status Date / Time shellfish derived Allergy Severe Anaphylactic Verified 04/09/23 14:21 Shock iohexol (From contrast - CT, Allergy Vomiting Verified 12/06/23 21:13 X-RAY) Review of Systems Review of Systems: CONSTITUTIONAL: Denies body aches, fever, chills, or sweats. EYES: Denies visual changes, redness, or discharge. ENT: Denies rhinorrhea, or otalgia.+ congestion, sore throat, postnasal drip CARDIOVASCULAR: Denies chest pain, palpitations, or edema. RESPIRATORY:+ cough, shortness of breath. GASTROINTESTINAL: Denies abdominal pain, nausea, vomiting, or diarrhea. GENITOURINARY: Denies dysuria or hematuria. SKIN: Denies rash, itching, or wounds. MUSCULOSKELETAL: Denies back pain, joint pain, or myalgia. NEUROLOGIC: Denies headache, numbness, tingling, or weakness.+ dizziness PSYCH: Denies depression or anxiety. [facility] Past Medical History Medical History Morbid obesity with BMI of 50.0-59.9, adult Kidney stones Arthritis Seasonal allergies Surgical History Surgical History History of nasal surgery Family History Family History Mother Family history of rheumatoid arthritis Family history of diabetes mellitus in first degree relative Family history of congestive heart failure Sibling Patient's sister is in good health Patient's brother is in good health Other Diabetes mellitus Family history of heart disease in male family member before age 55 Social History Social History Smoking status: Never smoker Alcohol intake: never Substance use: never Living arrangements: with family Occupation/Education: occupation 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 Please see nursing chart for further information. There is no relevant family history pertinent to the presenting complaint Exam Narrative: GENERAL: Chronically ill-appearing, well-nourished, and in no acute distress. HEAD: Normocephalic, atraumatic. EYES: EOMI. No redness or drainage. Conjunctivae normal. ENT: Mucous membranes pink and moist. Nares congested with rhinorrhea. TMs normal bilaterally. Throat erythematous and mildly edematous without exudate. Uvula midline. NECK: Normal AROM. Supple. No lymphadenopathy. CHEST: No respiratory distress. Clear to auscultation. HEART: Regular rate and rhythm. No murmur appreciated. EXTREMITIES: Normal range of motion. No edema. SKIN: Warm, dry, no rash. Capillary refill normal. Normal skin turgor. NEURO: No focal deficits. Alert and oriented x3. Gait steady. PSYCH: Normal affect. No signs of depression or anxiety. Course Course Level of Care: Express Care Visit Vital Signs Vital signs: Vital Signs Temperature 98.1 F 04/28/24 10:22 Pulse Rate 97 04/28/24 10:22 Respiratory Rate 20 04/28/24 10:22 Blood Pressure 154/89 H 04/28/24 10:22 Pulse Oximetry 97 04/28/24 10:22 Oxygen Delivery Room Air 04/28/24 10:22 Temperature 98.1 F 04/28/24 10:22 Pulse Rate 97 04/28/24 10:22 Respiratory Rate 20 04/28/24 10:22 Blood Pressure 154/89 H 04/28/24 10:22 Pulse Oximetry 97 04/28/24 10:22 Oxygen Delivery Room Air 04/28/24 10:22 Reviewed MDM - URI/Sore Throat MDM Narrative Medical decision making narrative: Patient will be started on Augmentin for presumed bacterial sinusitis due to history of diabetes, sinus pressure dizziness. Anticipatory guidance given. Differential Diagnosis Differential diagnosis: Likely upper respiratory infection, otitis media, sinusitis, viral infection, bronchitis and pharyngitis Critical Care Time Critical Care Time Critical Care Time: No Discharge Plan Discharge Clinical Impression: Sinusitis Qualifiers: Sinusitis location: unspecified location Chronicity: acute Recurrence: non-recurrent Qualified Code(s): J01.90 - Acute sinusitis, unspecified Patient Disposition: Home, Self-Care Condition: Stable Instructions: Antibiotic Form, Sinusitis (ED) Additional Instructions: Please take the Augmentin as prescribed until gone. Continue [id number] medication and your albuterol inhaler if needed. If symptoms worsen to include worsening shortness of breath, chest pain, or development of new fever greater than 100.3, please go to the ER immediately for further evaluation and treatment. Your blood pressure was elevated above 120/80 today at Urgent Care. This puts you above the threshold for follow up. Please schedule a followup visit with your personal physician as soon as possible, for further evaluation and treatment. Even blood pressure exceeding 120/80 may indicate pre-hypertension. Patient Language: Brazilian Prescriptions: New amoxicillin-pot clavulanate 875-125 mg tablet 1 tablet PO Q12H 7 Days Qty: 14 0RF No Action montelukast 10 mg tablet 10 tablet DIRECTED Trulicity 1.5 mg/0.5 mL pen injector 1.5 mg SUBCUT DIRECTED albuterol sulfate 90 mcg/actuation HFA aerosol inhaler 90 mcg INHALATION DIRECTED cetirizine 10 mg tablet azelastine 137 mcg (0.1 %) spray,non-aerosol INTRANASAL loratadine [Claritin] 10 mg Tablet 10 mg PO DAILY ibuprofen 600 mg tablet 600 mg PO TID PRN (Reason: pain) Qty: 30 0RF acetaminophen 500 mg capsule 1,000 mg PO Q6H PRN (Reason: pain) Qty: 30 0RF methocarbamol 1,000 mg tablet 1,000 mg PO HS Qty: 10 0RF Follow-up/Referrals: Krissy,BECKY Michael [Primary Care Provider] - Stand Alone Forms: Work/School Release IP Time of Disposition: 10:55
== END 2024-04-28 11:12 | disposition home or self-care (01) ==
PROVIDERS: Emergency Provider Nurse Practitioner; PCP Physician Assistant
DX: J01.90 Acute sinusitis, unspecified (principal); E11.9 Type 2 diabetes mellitus without complications; Z79.85 Long-term (current) use of injectable non-insulin antidiabetic drugs; M19.90 Unspecified osteoarthritis, unspecified site; E66.01 Morbid (severe) obesity due to excess calories; Z68.43 Body mass index [BMI] 50.0-59.9, adult
CPT/HCPCS: 99213; G0463

== ENCOUNTER 2024-11-16 17:41 | Emergency (ER) | payer OTHER, MEDICAID, SELFPAY ==
--- NOTE | ~2024-11-16 | CT_ITS ---
CLINICAL INDICATION: Right flank pain COMPARISON: 05/31/2017. Reference is also made to a CT examination of the chest dated 08/08/2020 TECHNIQUE: Multiple contiguous axial images of the abdomen and pelvis were performed without the admi nistration of intravenous contrast The dose-length product (DLP) was 1657.63 mGy-cm. Automated exposure control and iterative reconstruction technique were employed. FINDINGS/OBSERVATIONS: Visualized lower thorax: Indeterminate pulmonary nodules are identified within the bilateral lung bases. Within the left lower lobe (axial series, image 13) measuring 17 x 15 mm. Within the right middle lobe (axial series, image 3) measuring 12.5 x 12 mm. The heart is enlarged, without pericardial effusion. Liver: Bulky calcification within segment 5 of the liver. The remainder of the liver demonstrates otherwise homogeneously decreased attenuation (consistent wit h fatty infiltration) and is enlarged measuring 23 cm in longitudinal dimension. Gallbladder and biliary system: The gallbladder is distended, contains multiple stones and is otherwise unremarkable. Pancreas: Limited evaluation of the pancreas secondary to the lack of intravenous contrast. Spleen: The spleen demonstrates homogeneous attenuation and is not enlarged. Kidneys: The bilateral kidneys are unremarkable, without hydronephrosis or renal calculi. Adrenal glands: Unremarkable. Gastrointestinal tract: Colonic diverticulosis without surrounding inflammatory change. Appendix: The appendix is not definitively visualized. However, no pericecal inflammatory change is identified suggest the presence of acute appendicitis. Vasculature: Unremarkable. Lymph nodes: Limited evaluation without intravenous contrast. Pelvic structures: The bladder is only minimally distended, and otherwise unremarkable. The prostate gland is not enlarged. Body wall and musculoskeletal: Prior ventral hernia repair Age advanced degenerative disease within the lower thoracic and lumbosacral spines without acute comp ression fracture. IMPRESSION: No obstructive uropathy. Cholelithiasis without CT evidence of cholecystitis. Fatty infiltration of an enlarged liver. Indeterminate findings within the bilateral lung bases for which dedicated noncontrast enhanced CT ex amination should be performed prior to recommendation of follow-up Reviewed, dictated and finalized at location A. IMPRESSION: No obstructive uropathy. Cholelithiasis without CT evidence of cholecystitis. Fatty infiltration of an enlarged liver. Indeterminate findings within the bilateral lung bases for which dedicated nonc ontrast enhanced CT examination should be performed prior to recommendation of follow-up
[2024-11-16 17:42] VITALS: BP 151/102; PULSE 113; RESP 20; TEMP 36.7; O2SAT 95
--- OUTSIDE RECORDS SUMMARY | 2024-11-16 17:43 | XMS_ITS | Clinical Summary ---
Author Organization [facility] Address [address] [place] [address] Care Team Providers Care Court Registry Officer Name Role Phone India Reagan MD Primary Care Provider [phone] Source Comments [facility],non-owned Affiliates and Associated Physician Practices is amultiple site organization consisting of ambulatory clinics and hospital sitesin [place], [place], [place]. This disclosure is being madepursuant to the Care Everywhere program and may not contain all information available regarding this patient. Last updated 17.[facility] Allergies Active Allergy Reactions Criticality Noted Date Comments Shellfish Allergy Rash Medium 02/28/2019 Medications * Be aware that medications may not be up to date on this document. Alwaysverify current medications with the patient. montelukast (SINGULAIR) 10 MG tablet Take 10 mg by mouth at bedtime Active HYDROcodone-damian taminophen (NORCO) 5-325 MG tablet Take 1 tablet by mouth every 6 hours as needed for Pain 12 tablet 9 Active Additional Information Patient not taking.Reported on 03/05/2019 docusate sodium (COLACE) 100 MG capsule Take 1 capsule by mouth once daily 30 capsule 9 Active cyclobenzaprine (FLEXERIL) 10 MG tablet Take 1 tablet by mouth 3 times daily 30 tablet 9 Active CLARITHROMYCIN PO Active Active Problems Problem Noted Date Diagnosed Date Abdominal wall abscess 02/28/2019 Family History Medical History Relation Name Comments Diabetes - Type 2 Mother Hypertension Mother Relation Name Status Comments Mother Social History Tobacco Use Types Packs/Day Years Used Date Smoking Tobacco: Never Smokeless Tobacco: Never Alcohol Use Standard Drinks/Week Comments Never 0 (1 standard drink = 0.6 oz pur e alcohol) AUDIT-C Answer Date Recorded Frequency of Alcohol Consumption Never 01/15/2019 Average Number of Drinks Not on file 019 Frequency of Binge Drinking Not on file 12/31 Sex and Gender Information Value Date Recorded Sex Assigned at Not on file Legal Sex Male 5:32 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 Gender Identity Not on file Sexual Orientation Not on file Last Filed Vital Signs Vital Sign Reading Time Taken Comments Blood Pressure 148/85 04/16/2019 1:34 PM 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 Pulse 102 04/16/2019 1:34 PM 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 Temperature 36.3 C (97.4 F) 04/16/2019 1:34 PM 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 Respiratory Rate 20 04/16/2019 1:34 PM 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 Oxygen Saturation 95% 04/16/2019 1:34 PM 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 Inhaled Oxygen Concentration - - Weight 177.4 kg (391 lb) 04/16/2019 1:34 PM 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 Height 185.4 cm (6' 1) 04/16/2019 1:34 PM 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 Body Mass Index 51.59 04/16/2019 1:34 PM 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 Plan of Treatment Health Maintenance Due Date Last Done Comments COLOGUARD (AGES 45-75) - COL ON CA SCREENING 1966 COLON MONITORING 1966 COLONOSCOPY - COLON CA SCREENING 1966 CT COLONOGRAPHY - COLON CA SCREENING 1966 Colorectal Cancer Screening 1966 FIT - COLON CA SCREENING 1966 FLEX SIG - COLON CA SCREENING 1966 LIPID TESTING 1966 HIV SCREENING 1981 HEPATITIS C SCREENING 11/13/1984 DTAP/TDAP/TD VACCINES (1 - Tdap) 1985 HEPATITIS B VACCINE (1 of 3 - 19+ 3-dose series) 1985 PNEUMOCOCCAL VACCINE 50+ (1 of 1 - PCV) 2016 ZOSTER VACCINE (1 of 2) 2016 SCREENING FOR DIABETES 03/01/2022 9, 02/28/2019, 02/25/2019 COVID-19 VACCINE ( - 2023-2 5 season) 2023 DEPRESSION SCREENING 04/02/2024 INFLUENZA VACCINE (#1) 2024 HIB VACCINE Aged Out No longer eligi ble based on patient's age to complete this topic HPV VACCINE Aged Out No longer eligi ble based on patient's age to complete this topic MENINGOCOCCAL (Group B) VACCINE SHARED DECISION-MAKING Aged Out No longer eligible based on patient's age to complete this topic MENINGOCOCCAL GROUPS A/C/Y/W VACCINE Aged Out No longer eligible b ased on patient's age to complete this topic Medical Devices Implanted Type Area Forepart Rasper Device Identifier Shelf Expiration Date Model / Serial / Lot Mesh Srg Ventralight St Sepra 8x6in Implanted:Qty: 1 on 02/25/2019 by Valentino Park MD at [facility] N/A: Abdomen [employer] 08/27/2020 [id number] / / [id number] Procedures Procedure Name Priority Date/Time Associated Diagnosis Comments BASIC METABOLIC PANEL (CALCIUM TOTAL) AM Draw 03/01/2019 2:41 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 Abdominal wall abscess from Last 3 Months or Most Recently Relevant to Health Maintenance Results * (ABNORMAL) BASIC METABOLIC PANEL (CALCIUM TOTAL) (03/01/2019 2:41 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) BUN 11 7 - 26 mg/dL 03/01/2019 3:38 AM [facility] Creatinine 0.9 0.6 - 1.2 mg/dL 03/01/2019 3:38 AM [facility] Sodium 135(L) 136 - 145 mmol/L 03/01/2019 3:38 AM [facility] Potassium 4.3 3.5 - 4.5 mmol/L 03/01/2019 3:38 AM [facility] Chloride 101 98 - 107 mmol/L 03/01/2019 3:38 AM [facility] CO2 24 22 - 29 mmol/L 03/01/2019 3:38 AM [facility] Glucose 117(H) 70 - 115 mg/dL 03/01/2019 3:38 AM [facility] Calcium 8.7 8.4 - 10.2 mg/dL 03/01/2019 3:38 AM [facility] Anion Gap 14 8 - 18 03/01/2019 3:38 AM [facility] BUN/Creatinine Ratio 12 7 - 23 03/01/2019 3:38 AM [facility] Osmolality Calculated 280 270 - 300 mOsm/kg 03/01/2019 3:38 AM [facility] eGFR >60 >60 mL/min/1.7 3 m2 03/01/2019 3:38 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 [facility] Blood BLOOD SPECIMEN / Unknown Lab Venipuncture / Unknown 03/01/2019 2:41 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 03/01/2019 3:06 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 Vipul Cabrera MD LAB - CHEMISTRY ORDERABLES Final Result [facility] [address] [phone] from Last 3 Months or Most Recently Relevant to Health Maintenance Insurance [facility] Advance Directives * Full Code (Latest Code Status on File) Date Activated Date Inactivated Comments 02/28/2019 11:12 PM 03/01/2019 11:[address] Registry Officer Relationship Specialty Start Date End Date India Reagan MD [address] [place] [phone] PCP - General 01/13/19
--- OUTSIDE RECORDS SUMMARY | 2024-11-16 17:43 | XMS_ITS | Clinical Summary ---
Author Organization [facility] Address [address] [place] [address] Care Team Providers Care Saw Grinder Name Role Phone Carley Rey Primary Care Provider + Allergies Active Allergy Reactions Criticality Noted Date Comments Iodinated Contrast Media Nausea & Vomiting Low 10/31 Vomiting Shellfish Containing Products Anaphylaxis High 11/09 Medications albuterol HFA (PROVENTIL HFA,VENTOLIN HFA,PROAIR HFA) 90 mcg/actuation inhaler Inhale 2 puffs every 6 (six) hours as needed 2 Active albuterol 2.5 mg /3 mL (0.083 %) nebulizer solution Take 3 mL by nebulization 3 (three) times a day as needed for shortness of breath 2 Active dulaglutide (TRULICITY) 1.5 mg/0.5 mL pen injector Inject 1.5 mg under the skin once a week 2 Active montelukast (SINGULAIR) 10 mg tablet Take 10 mg by mouth daily 2 Active loratadine (CLARITIN) 10 mg tablet Take 10 mg by mouth daily Active benzonatate (TESSALON) 100 mg capsuleIndicati ons:Cough Take 1 capsule (100 mg total) by mouth 3 (three) times a day as needed for cough 45 capsule 1 2 Active Active Problems Problem Noted Date Diagnosed Date CAP (community acquired pneumonia) 11/15/2021 Assessment & Plan (11/16/2021 5:03 AM CDT): Failure therapy to Z-Dany As seen on CT imaging IV antibiotic with Levaquin Pending follow-up of blood culture results Pending follow-up of urine antigen testing Pre-diabetes Assessment & Plan (11/16/2021 5:00 AM CDT): As referred by patient Home regimen of Trulicity will be held Fingersticks q.a.c. and HS with low-dose sliding scale A1c level Further adjustments to management to be coordinated BMI 50.0-59.9, adult Assessment & Plan (11/16/2021 5:00 AM CDT): BMI 56.05 Pending assessment of TSH and F T4 levels Dietary counseling Asthma Assessment & Plan (11/16/2021 5:02 AM CDT): Continue home regimen Stable Asymptomatic cholelithiasis Hepatic steatosis Leukocytosis Surgical History Surgery Date Site/Laterality Comments HERNIA REPAIR Medical History Medical History Date Comments Pre-diabetes Family History Medical History Relation Name Comments Diabetes Mother Relation Name Status Comments Mother Alive Social History Tobacco Use Types Packs/Day Years Used Date Smoking Tobacco: Never Smokeless Tobacco: Never Sex and Gender Information Value Date Recorded Sex Assigned at Not on file 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 Gender Identity Not on file Sexual Orientation Not on file Obstetrics History Last Filed Vital Signs Vital Sign Reading Time Taken Comments Blood Pressure 144/75 11/16/2021 4:17 PM CDT Pulse 90 11/16/2021 4:17 PM CDT Temperature 36.9 C (98.5 F) 11/16/2021 4:17 PM CDT Respiratory Rate 20 11/16/2021 4:17 PM CDT Oxygen Saturation 96% 11/16/2021 4:17 PM CDT Inhaled Oxygen Concentration - - Weight 192.7 kg (424 lb 12.8 oz) 2021 11:35 PM CDT Height 185.4 cm (6' 1) 11/15/2021 11:3 5 PM CDT Body Mass Index 56.05 11/15/2021 11:35 PM CDT Plan of Treatment Health Maintenance Due Date Last Done Comments Colon Cancer Screening-Colonoscopy 1966 Depression Screening 1966 Hepatitis C Screening 1966 Prostate Cancer Screening-PSA 1966 Hepatitis B Screening 1984 Regular Well Visit/Exam 18-64 1984 Zoster Vaccine (1 of 2) 2016 Pneumococcal vaccine <65 (2 of 2 - PPSV23, PCV20, or PCV21) 07/10/2018 05/15/2018 Covid-19 Vaccine ( season) 2023 10/11/2021, 05/02/2021, 03/24/2021 Influenza Vaccine (#1) 2024 02/02/2020 DTaP/Tdap/Td Vaccine (2 - Td or Tdap) 05/15/2028 Insurance [facility] Care Teams Saw Grinder Relationship Specialty Start Date End Date Krissy, Carley Kana, PA PCP - General Physician 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
[2024-11-16 18:53] LABS: Hematocrit 48.3 % (42.0-52.0); Hemoglobin 15.3 g/dL (14.0-18.0); Immature Granulocyte Percent A 0.5 % (0-0.5); Lymphocytes Absolute Auto 1.50 K/mm3 (0.9-3.2); Mean Corpuscular HGB Conc 31.7 g/dl (32-36); Mean Corpuscular Hemoglobin 28.8 pg (26-34); Mean Corpuscular Volume 91.0 fl (80-100); Nucleated Red Blood Cells Absolute Auto 0.000 K/mm3 (0.0-0.012); Nucleated Red Blood Cells Perc 0.0 % (0.0-0.2); Platelet Count Result 255 k/mm3 (150-375); Red Blood Count 5.31 M/mm3 (4.6-6.20); White Blood Count 10.8 K/mm3 (4.5-10.0)
[2024-11-16 19:04] LABS: Alanine Aminotransferase 34 U/L (6-50); Albumin Level 4.4 g/dL (3.5-5.1); Alkaline Phosphatase 62 U/L (38-126); Anion Gap 9 mmol/L (4-12); Aspartate Amino Transferase 35 U/L (17-59); Bilirubin,Total 0.5 mg/dL (0.2-1.3); Blood Urea Nitrogen 15 mg/dL (9-20); Calcium 9.1 mg/dL (8.4-10.2); Carbon Dioxide 26 mmol/L (22-30); Chloride 103 mmol/L (98-107); Estimated CRCL calculation 135 ml/min; Estimated Glomerular Filt Rate > 60; Glucose 134 mg/dL (65-110); Potassium 4.5 mmol/L (3.4-5.0); Sodium 138 mmol/L (137-145); Total Protein 8.4 g/dL (6.3-8.2)
[2024-11-16 19:12] LABS: Add Urine Microscopic? YES; Appearance Urine Clear (Clear); Glucose Urine UA Negative (Negative); Leukocyte Esterase Ur Trace LEU/UL (Negative); Nitrate Urine Negative (Negative); Non Pathogenic Casts 0-2; Specific Grav Ur 1.031 (1.001-1.035)
--- NOTE | 2024-11-16 19:30 | ED.ABDPAIN ---
HPI - Abdominal Pain General Chief Complaint: Abdominal Pain Stated Complaint: abd pain Time Seen by Provider: 11/16/24 19:00 History of Present Illness HPI narrative: 58-year-old male with history of kidney stones and obesity as well as hypertension. Patient presents to the emergency department with right flank pain going towards his groin. Symptoms going on for last 2 days. Feels similar to his last time he had kidney stones. Endorses some nausea without vomiting. No diarrhea constipation but he has had recent constipation and has been treated. No fever, chills or urinary issues. Was otherwise in his normal state of health. Denies any traumatic injuries or recent health concerns. Related Data Home Medications ?Medication ?Instructions ?Recorded ?Confirmed ?Last Taken ?Type loratadine 10 mg tablet (Claritin) 10 mg PO DAILY 02/01/21 07/23/23 Unknown History montelukast 10 mg tablet 10 tablet DIRECTED 08/25/21 07/23/23 Unknown History dulaglutide 1.5 mg/0.5 mL 1.5 mg subcut DIRECTED 03/14/22 07/23/23 Unknown History subcutaneous pen injector (Trulicity) albuterol sulfate 90 mcg/actuation 90 mcg inhalation DIRECTED 07/23/23 07/23/23 Unknown History aerosol inhaler azelastine 137 mcg (0.1 %) nasal intranasal 04/28/24 Unknown History spray cetirizine 10 mg tablet mg 04/28/24 Unknown History Allergies Allergy/AdvReac Type Severity Reaction Status Date / Time shellfish derived Allergy Severe Anaphylactic Verified 11/16/24 18:19 Shock iohexol (From contrast - CT, Allergy Vomiting Verified 11/16/24 18:19 X-RAY) Review of Systems Review of Systems: As [facility] Past Medical History Medical History Morbid obesity with BMI of 50.0-59.9, adult Kidney stones Arthritis Seasonal allergies Surgical History Surgical History History of nasal surgery Family History Family History Mother Family history of rheumatoid arthritis Family history of diabetes mellitus in first degree relative Family history of congestive heart failure Sibling Patient's sister is in good health Patient's brother is in good health Other Diabetes mellitus Family history of heart disease in male family member before age 55 Social History Social History Smoking status: Never smoker Alcohol intake: never Substance use: never Living arrangements: with family Occupation/Education: occupation 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 Mucous membranes moist. NECK: Supple. CHEST: [Clear to auscultation. No respiratory distress.] HEART: [Regular rate and rhythm]. No murmur heard. [Normal peripheral pulses.] ABDOMEN: [Soft, nondistended], reproducible tenderness in the right flank with no overlying skin changes, large pannus, [No rigidity or guarding] EXTREMITIES: Normal range of motion. [No edema.] SKIN: Warm, dry, no rash. NEURO: [No focal deficits]. Alert and oriented [x3.] PSYCH: [Normal mood and affect.] Course Vital Signs Vital signs: Vital Signs Temperature 36.7 C 11/16/24 17:42 Pulse Rate 113 H 11/16/24 17:42 Respiratory Rate 20 11/16/24 17:42 Blood Pressure 151/102 H 11/16/24 17:42 Pulse Oximetry 95 11/16/24 17:42 Temperature 36.7 C 11/16/24 17:42 Pulse Rate 110 H 11/16/24 21:05 Respiratory Rate 18 11/16/24 21:05 Blood Pressure 155/98 H 11/16/24 21:05 Pulse Oximetry 97 11/16/24 21:05 MDM - Abdominal Pain MDM Narrative Medical decision making narrative: 58-year-old male with history of kidney stones and obesity as well as hypertension. Patient presents to the emergency department with right flank pain going towards his groin. Symptoms going on for last 2 days. Feels similar to his last time he had kidney stones. Endorses some nausea without vomiting. No diarrhea constipation but he has had recent constipation and has been treated. No fever, chills or urinary issues. Was otherwise in his normal state of health. Denies any traumatic injuries or recent health concerns. Patient is uncomfortable appearing and pacing around the room. Has reproducible pain in his right flank, mild tachycardic but not any distress. No tachypnea or blood pressure concerns. No fever. Symptoms consistent with his history of kidney stones. Other differential includes gastritis, cholecystitis, pyelonephritis, urinary tract infection. CT without contrast obtained for evaluation of kidney stones, he was given morphine fluids and Zofran as well as laboratory studies being drawn with urinalysis ordered. Laboratory studies are reassuring. No significant leukocytosis or anemia. Normal platelet count. CMP shows normal electrolytes, normal kidney function, no LFT elevations. Unremarkable glucose. Normal lipase. Urinalysis without signs of infection. CT scan was independently reviewed and also interpreted by Radiology. No signs of kidney stones or any obstruction or uropathy. He has some cholelithiasis without any evidence of cholecystitis. Large liver with fatty infiltration and indeterminate findings within the lung bases consistent with nodules. I discussed the CT findings with him including the lung nodules that were incidentally found. Patient had improvement in symptoms after 2nd round of pain medications. We discussed general surgery outpatient follow-up instructions and return precautions and he verbalized understanding them. Informed about the remainder of his workup and both patient and family's questions were answered. Patient felt comfortable with discharge home and will be sent home with short course of pain medications until he can see General surgery. Work note provided. Medical Records Attestation: I reviewed the patient's medical records. Lab Data Attestation: I reviewed the patient's lab results. 11/16/24 18:41 11/16/24 18:41 Labs: Lab Results 11/16/24 11/16/24 Range/Units 18:41 19:03 WBC 10.8 H (4.5-10.0) K/mm3 RBC 5.31 (4.6-6.20) M/mm3 Hgb 15.3 (14.0-18.0) g/dL Hct 48.3 (42.0-52.0) % MCV 91.0 (80-100) fl MCH 28.8 (26-34) pg MCHC 31.7 L (32-36) g/dl RDW 14.5 (11.5-14.5) % Plt Count 255 (150-375) k/mm3 MPV 11.1 H (7.4-10.4) fl Immature Gran % (Auto) 0.5 (0-0.5) % Neut % (Auto) 74.8 H (45.5-73.1) % Lymph % (Auto) 13.9 L (18.3-44.2) % Glynn % (Auto) 8.0 (2.6-8.5) % Eos % (Auto) 2.5 (0-4.4) % Baso % (Auto) 0.3 (0.2-1.2) % Lymph # (Auto) 1.50 (0.9-3.2) K/mm3 Glynn # (Auto) 0.9 H (0.1-0.6) K/mm3 Eos # (Auto) 0.3 (0-0.3) K/mm3 Baso # (Auto) 0.0 (0.0-0.1) K/mm3 Abs Immat Gran (auto) 0.05 H (0.00-0.031) K/mm3 Absolute Neuts (auto) 8.1 H (1.3-6.7) K/mm3 Absolute Nucleated RBC 0.000 (0.0-0.012) K/mm3 Nucleated RBC % 0.0 (0.0-0.2) % Sodium 138 (137-145) mmol/L Potassium 4.5 (3.4-5.0) mmol/L Chloride 103 (98-107) mmol/L Carbon Dioxide 26 (22-30) mmol/L Anion Gap 9 (4-12) mmol/L BUN 15 (9-20) mg/dL Creatinine 0.90 (0.7-1.3) mg/dL Estim Creat Clear Calc 135 ml/min Estimated GFR > 60 (59 - ) Glucose 134 H (65-110) mg/dL Calcium 9.1 (8.4-10.2) mg/dL Total Bilirubin 0.5 (0.2-1.3) mg/dL AST 35 (17-59) U/L ALT 34 (6-50) U/L Alkaline Phosphatase 62 (38-126) U/L Total Protein 8.4 H (6.3-8.2) g/dL Albumin 4.4 (3.5-5.1) g/dL Lipase 64 (23-300) U/L Urine Color Dark yellow (Yellow) Urine Appearance Clear (Clear) Urine pH 5.0 (5.0-9.0) Ur Specific [place] 1.031 (1.001-1.035) Urine Protein 1+ H (Negative) mg/dL Urine Glucose (UA) Negative (Negative) mg/dL Urine Ketones Trace H (Negative) mg/dL Ur Blood (Man) Negative (Negative) Urine Nitrate Negative (Negative) Urine Bilirubin Negative (Negative) Urine Urobilinogen 1.0 (<2.0) mg/dL Leukocyte Esterase Rfl Trace H (Negative) ARACELY/UL Urine RBC 3-5 H (0-2) /hpf Urine WBC 0-5 (0-3) /hpf Ur Squamous Epith Cells None seen (Few) /hpf Urine Bacteria None seen /hpf Urine Casts 0-2 Imaging Data Attestation: I personally reviewed and interpreted this imaging study as follows: My impression: Impressions Abdomen/Pelvis CT 11/16/24 21:57 IMPRESSION: No obstructive uropathy. Cholelithiasis without CT evidence of cholecystitis. Fatty infiltration of an enlarged liver. Indeterminate findings within the bilateral lung bases for which dedicated noncontrast enhanced CT examination should be performed prior to recommendation of follow-up Radiologist's impression: ITS Impressions Abdomen/Pelvis CT 11/16/24 21:57 IMPRESSION: No obstructive uropathy. Cholelithiasis without CT evidence of cholecystitis. Fatty infiltration of an enlarged liver. Indeterminate findings within the bilateral lung bases for which dedicated noncontrast enhanced CT examination should be performed prior to recommendation of follow-up Discharge Plan Discharge Clinical Impression: Symptomatic cholelithiasis, Incidental lung nodule, Fatty liver disease, nonalcoholic Patient Disposition: Home Condition: Stable Instructions: Antibiotic Form, Biliary Colic (ED), Gallstones (ED) Additional Instructions: You have gallstones without any evidence of infection or complication. No urgent or emergent concerns today and we will treat this with pain medications and to you can see general surgery referral for outpatient follow-up. If you start experiencing fevers, intractable pain, intractable nausea vomiting or any other new or emergent concerns please return to the emergency department for repeat evaluation otherwise follow-up with your regular doctor and general surgeon referral. Speak to your doctor about the incidentally found lung nodules which are not causing any symptoms or show concern at this time. Patient Language: Occitan Prescriptions: New hydrocodone-acetaminophen 5-325 mg tablet 1 tablet PO Q8H PRN (Reason: pain) Qty: 14 0RF ibuprofen 800 mg tablet 800 mg PO TID PRN (Reason: pain) Qty: 20 0RF ondansetron 4 mg tablet,disintegrating 4 mg PO Q8H PRN (Reason: nausea and vomiting) Qty: 10 0RF No Action montelukast 10 mg tablet 10 tablet DIRECTED Trulicity 1.5 mg/0.5 mL pen injector 1.5 mg SUBCUT DIRECTED albuterol sulfate 90 mcg/actuation HFA aerosol inhaler 90 mcg INHALATION DIRECTED cetirizine 10 mg tablet azelastine 137 mcg (0.1 %) spray,non-aerosol INTRANASAL amoxicillin-pot clavulanate 875-125 mg tablet 1 tablet PO Q12H 7 Days Qty: 14 0RF benzonatate 200 mg capsule 200 mg PO TID PRN (Reason: cough) Qty: 20 0RF loratadine [Claritin] 10 mg Tablet 10 mg PO DAILY ibuprofen 600 mg tablet 600 mg PO TID PRN (Reason: pain) Qty: 30 0RF acetaminophen 500 mg capsule 1,000 mg PO Q6H PRN (Reason: pain) Qty: 30 0RF methocarbamol 1,000 mg tablet 1,000 mg PO HS Qty: 10 0RF Follow-up/Referrals: Krissy,BECKY Michael [Primary Care Provider] - Sanchez Bell DO [Physician] - 3 Days (Symptomatic cholelithiasis) Stand Alone Forms: Work/School Release IP Time of Disposition: 22:30
--- OUTSIDE RECORDS SUMMARY | 2024-11-16 19:44 | XMS_ITS | Clinical Summary ---
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
--- OUTSIDE RECORDS SUMMARY | 2024-11-16 19:44 | XMS_ITS | Clinical Summary ---
Author Organization [facility] Address [address] [place] [address] Care Team Providers Care Inspector Automatic Typewriter Name Role Phone India Reagan MD Primary Care Provider [phone] Source Comments [facility],non-owned Affiliates and Associated Physician Practices is amultiple site organization consisting of ambulatory clinics and hospital sitesin [place], [place], [place] and [place]. This disclosure is being madepursuant to the Care Everywhere program and may not contain all information available regarding this patient. 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 Gender Identity Not on file Sexual Orientation Not on file Last Filed Vital Signs Vital Sign Reading Time Taken Comments Blood Pressure 148/85 04/16/2019 1:34 PM MEDICAL COMMUNICATION SPECIALIST Pulse 102 04/16/2019 1:34 PM MEDICAL COMMUNICATION SPECIALIST Temperature 36.3 C (97.4 F) 04/16/2019 1:34 PM MEDICAL COMMUNICATION SPECIALIST Respiratory Rate 20 04/16/2019 1:34 PM MEDICAL COMMUNICATION SPECIALIST Oxygen Saturation 95% 04/16/2019 1:34 PM MEDICAL COMMUNICATION SPECIALIST Inhaled Oxygen Concentration - - Weight 177.4 kg (391 lb) 04/16/2019 1:34 PM MEDICAL COMMUNICATION SPECIALIST Height 185.4 cm (6' 1) 04/16/2019 1:34 PM MEDICAL COMMUNICATION SPECIALIST Body Mass Index 51.59 04/16/2019 1:34 PM MEDICAL COMMUNICATION SPECIALIST Plan of Treatment Health Maintenance Due Date [...] this topic Medical Devices Implanted Type Area [employer]urbines Assembler Device Identifier Shelf Expiration Date Model / Serial / Lot Mesh Srg Ventralight St Sepra 8x6in Implanted:Qty: 1 on 02/25/2019 by Valentino Park MD at [facility] N/A: Abdomen [employer] 08/27/2020 [id number] / / [id number] Procedures Procedure Name Priority Date/Time Associated Diagnosis Comments BASIC METABOLIC PANEL (CALCIUM TOTAL) AM Draw 03/01/2019 2:41 AM MEDICAL COMMUNICATION SPECIALIST Abdominal wall abscess from Last 3 Months or Most Recently Relevant to Health Maintenance Results * (ABNORMAL) BASIC METABOLIC PANEL (CALCIUM TOTAL) (03/01/2019 2:41 AM MEDICAL COMMUNICATION SPECIALIST) BUN 11 7 - 26 mg/dL 03/01/2019 3:38 AM [facility] Creatinine 0.9 0.6 - 1.2 mg/dL 03/01/2019 3:38 AM [facility] Sodium 135(L) 136 - 145 mmol/L 03/01/2019 3:38 AM [facility] Potassium 4.3 3.5 - 4.5 mmol/L 03/01/2019 3:38 AM [facility] Chloride 101 98 - 107 mmol/L 03/01/2019 3:38 AM [facility] CO2 24 22 - 29 mmol/L 03/01/2019 3:38 AM [facility] Glucose 117(H) 70 - 115 mg/dL 03/01/2019 3:38 AM [facility] Calcium 8.7 8.4 - 10.2 mg/dL 03/01/2019 3:38 AM [facility] Anion Gap 14 8 - 18 03/01/2019 3:38 AM [facility] BUN/Creatinine Ratio 12 7 - 23 03/01/2019 3:38 AM [facility] Osmolality Calculated 280 270 - 300 mOsm/kg 03/01/2019 3:38 AM [facility] eGFR >60 >60 mL/min/1.7 3 m2 03/01/2019 3:38 AM MEDICAL COMMUNICATION SPECIALIST [facility] Blood BLOOD SPECIMEN / Unknown Lab Venipuncture / Unknown 03/01/2019 2:41 AM MEDICAL COMMUNICATION SPECIALIST 03/01/2019 3:06 AM MEDICAL COMMUNICATION SPECIALIST Vipul Cabrera MD LAB - CHEMISTRY ORDERABLES Final Result [facility] [address] [phone] from Last 3 Months or Most Recently Relevant to Health Maintenance Insurance [facility] Advance Directives * Full Code (Latest Code Status on File) Date Activated Date Inactivated Comments 02/28/2019 11:12 PM 03/01/2019 11:26 AM Care Teams Inspector Automatic Typewriter Relationship Specialty Start Date End Date India Reagan MD [address] [place] [id number] PCP - General 01/13/19
[2024-11-16 19:53] LABS: Lipase 64 U/L (23-300)
--- NOTE | 2024-11-16 20:00 | PC.NURSE ---
Pt stating he is so hot he may pass out. Requesting fan. Assisted pt to sit in chair instead of standing in doorway. Fan provided for pt.
[2024-11-16 21:05] VITALS: BP 155/98; PULSE 110; RESP 18; O2SAT 97
[2024-11-16] MEDS: LACTATED RINGERS 1,000 ML 999 ML IV CONT (21:07)
[2024-11-16] MEDS: ONDANSETRON INJ 4 MG/2 ML VIAL IV PUSH (21:08)
[2024-11-16] MEDS: MORPHINE SULFATE (*CRX) 4 MG/ML INJ IV PUSH (21:08)
--- NOTE | 2024-11-16 21:15 | PC.NURSE ---
Pt c/o being unable to get up into stretcher d/t his size and the height of the bed at the lowest setting. This RN got the step stool for pt. Pt still unable to get into stretcher d/t back pain. Offered to get pt the recliner as this RN explained the importance of monitoring pt with receiving opiate pain medication. Verbalized understanding and willing to get into recliner. Requested additional pillows, which were provided to pt.
[2024-11-16] MEDS: HYDROmorphone HCL INJ (*CRX) 1 MG/ML SYR 0.5 MG IV PUSH (22:29)
[2024-11-16 22:39] VITALS: BP 149/93; PULSE 95; RESP 16; O2SAT 99
[2024-11-16 23:35] VITALS: BP 149/93; PULSE 95; RESP 16; O2SAT 99
== END 2024-11-16 23:37 | disposition home or self-care (01) ==
PROVIDERS: Emergency Medicine; Emergency Provider Student in an Organized Health Care Education/Training Program; PCP Physician Assistant
DX: K80.20 Calculus of gallbladder without cholecystitis without obstruction (principal); K76.0 Fatty (change of) liver, not elsewhere classified; R91.1 Solitary pulmonary nodule; I10 Essential (primary) hypertension
CPT/HCPCS: 36415; 74176; 80053; 81001; 83690; 85025; 96361; 96374; 96375; 99284; J1171; J2270; J2405; J7120